=== PATIENT | female | born 1935 | race Hispanic/Latino ===

== ENCOUNTER 2018-07-14 15:29 | Observation (INO) | payer OTHER ==
[2018-07-14 16:37] LABS: Absolute Lymphocytes (CBC) 0.2 K/uL (0.7-4.9); Absolute Monocytes 0.5 K/uL (0.1-1.3); Absolute Neutrophil 8.4 K/uL (1.8-8.0); Basophils % 0.3 % (0-1.3); Hematocrit 33.7 % (36.0-45.0); Lymphocytes % 2.5 % (15.3-44.8); MCV 92.1 fL (80-100); MPV 7.8 fL (7.6-11.3); Monocytes % 5.8 % (3.3-12.3); RBC Red Blood Cell Count 3.66 M/uL (3.86-4.86)
[2018-07-14 16:52] LABS: ALT/SGPT 32 U/L (12-78); AST/SGOT 31 U/L (15-37); Albumin 3.7 g/dL (3.4-5.0); Alkaline Phosphatase 97 U/L (45-117); BUN Blood Urea Nitrogen 17 mg/dL (7-18); Bicarbonate 26 mmol/L (21-32); Bilirubin Direct 0.2 mg/dL (0-0.2); Bilirubin Total 0.6 mg/dL (0.2-1.0); Glucose Level 117 mg/dL (74-106); NT PRO-BNP 949 pg/mL (<450); Potassium 3.7 mmol/L (3.5-5.1); Protein, Total 7.2 g/dL (6.4-8.2); Sodium Level 133 mmol/L (136-145); Troponin (Emerg Dept Use Only) 0.08 ng/mL (0.0-0.045)
[2018-07-14 16:56] LABS: Protime INR 1.01
--- NOTE | 2018-07-14 17:03 | RAD REPORT ---
EXAM DESCRIPTION: CT - CTHCSPWOC - 07/14/2018 4:47 pm CLINICAL HISTORY: Trauma, head and neck injury. fall COMPARISON: Head C Spine Mpr Wo Con dated 02/26/2016 TECHNIQUE: Axial 5 mm thick images of the head were obtained. Axial 2 mm thick images of the cervical spine were obtained with sagittal and coronal reconstruction images generated and reviewed. All CT scans are performed using dose optimization technique as appropriate and may include automated exposure control or mA/KV adjustment according to patient size. FINDINGS: CT HEAD WITHOUT CONTRAST: No acute hemorrhage, hydrocephalus or extra-axial collection is identified.Advanced generalized brain atrophy is present with advanced periventricular and deep white matter chronic microvascular ischemi c changes.No areas of brain edema or midline shift. The paranasal sinuses and mastoids are clear.The calvarium is intact. CT CERVICAL SPINE WITHOUT CONTRAST: No fracture or subluxation.2 mm degenerative anterolisthesis of C3 on 4 is present. 2 mm degenerative retrolisthesis of C5 on 6.No prevertebral soft tissues swelling is identified. Carotid atheroscleros is is present. IMPRESSION: No acute intracranial or cervical spine findings. Moderate cervical degenerative changes are present.
--- NOTE | 2018-07-14 17:14 | RAD REPORT ---
EXAM DESCRIPTION: RAD - Chest Single View - 07/14/2018 5:08 pm CLINICAL HISTORY: fall, syncope Chest pain. COMPARISON: Chest Single View dated 02/27/2016; Chest Single View dated 02/26/2016; CHEST SINGLE VIEW dated 11/01/2015 FINDINGS: Portable technique limits examination quality. Mild interstitial pulmonary edema is noted. The heart is mildly prominent size. No displaced fracture s.Aortic atherosclerosis. IMPRESSION: Mild CHF suspected.
[2018-07-14 17:39] LABS: Blood Morphology Comment NOT SEEN (NOT SEEN); Platelet Estimate ADEQ; Urine White Blood Cell Casts OK
[2018-07-14] MEDS ORDERED: LISINOPRIL 10 MG TAB ONE (17:40)
--- NOTE | 2018-07-14 18:19 | ER ---
Nurse's Notes [facility] Name: Karla Rosa Age: 82 yrs Sex: Female : 1935 Arrival Date: 07/14/2018 Time: 15:40 Bed 6 Private MD: Diagnosis: Syncope and collapse;Elevated Troponin Presentation: 07/14 15:40 Presenting complaint: EMS states: "pt was found lying on floor after unwitnessed fall, aa5 pt was on floor for approximately 4 hours". Pt denies pain. 15:40 Transition of care: patient was not received from another setting of care. Onset of aa5 symptoms was July 14, 2018. Risk Assessment: Do you want to hurt yourself or someone else? Patient reports no desire to harm self or others. Initial Sepsis Screen: Does the patient meet any 2 criteria? No. Patient's initial sepsis screen is negative. Does the patient have a suspected source of infection? No. Patient's initial sepsis screen is negative. Care prior to arrival: IV initiated. 22 GA, in the right forearm. 15:40 Method Of Arrival: EMS: [facility] aa5 15:40 Mechanism of Injury: Fall from standing position. Trauma event details: Injury occurred aa5 in the [facility], Injury occurred: at home. Injury occurred: July 14, 2018. 15:40 Acuity: AUGUSTA 2 aa5 Trauma Activation: Alert Physician: ED Physician; Name: ; Notified At: ; Arrived At: Physician: General Surgeon; Name: ; Notified At: ; Arrived At: Physician: Radiology; Name: ; Notified At: ; Arrived At: Physician: Respiratory; Name: ; Notified At: ; Arrived At: Physician: Lab; Name: ; Notified At: ; Arrived At: Historical: - Allergies: 15:45 No Known Allergies; aa5 - Home Meds: 15:45 Integra oral oral for Iron Deficiency Anemia [Active]; Omeprazole Oral [Active]; aa5 Lisinopril Oral [Active]; Aspirin Oral [Active]; 19:27 Famotidine Oral [Active]; lisinopril Oral [Active]; ak1 - PMHx: 15:41 GERD; Hypertension; aa5 - PSHx: 15:41 Hysterectomy; aa5 - Immunization history:: Adult Immunizations unknown. - Social history:: Smoking status: Patient/guardian denies using tobacco. - Immunization history: Last tetanus immunization: unknown. - Ebola Screening: : No symptoms or risks identified at this time. Screenin:45 Abuse screen: Denies threats or abuse. Nutritional screening: No deficits noted. aa5 Tuberculosis screening: No symptoms or risk factors identified. Fall Risk Fall in past 12 months (25 points). IV access (20 points). Mental Status- Overestimates/Forgets Limitations (15 pts.). Total Guzman Fall Scale indicates High Risk Score (45 or more points). Fall prevention measures have been instituted. Side Rails Up X 2 Placed Close to Nursing Station. Primary Survey: 15:40 A: Airway: patent. Breathing/Chest: Chest inspection: symmetrical rise and fall of the aa5 chest. Circulation: Skin color: pink. Disability Alert. 15:55 Reassessment Airway Airway Patent Breathing/Chest Respiratory pattern Regular aa5 Circulation Color [place] Disability Alert. Secondary Survey: 15:45 HEENT: No deficits noted. Gastrointestinal: No deficits noted. : No deficits noted. aa5 Musculoskeletal: No deficits noted. Assessment: 15:42 General: Appears comfortable, Behavior is calm, cooperative, Pt states "I just remember aa5 making coffee and I think I fell but my son found me lying on the floor". . Pain: Denies pain. Neuro: Level of Consciousness is awake, alert, obeys commands, Oriented to person, place, time, situation, [place] are weak bilaterally Moves all extremities. Speech is normal, Facial symmetry appears normal, Pupils are PERRLA. EENT: No signs and/or symptoms were reported regarding the EENT system. Cardiovascular: Heart tones S1 S2 present Rhythm is regular. Respiratory: Airway is patent Respiratory effort is even, unlabored, Respiratory pattern is regular, symmetrical, Breath sounds are clear bilaterally. GI: Abdomen is flat, non-distended, Bowel sounds present X 4 quads. Abd is soft and non tender X 4 quads. : No signs and/or symptoms were reported regarding the genitourinary system. Derm: Skin is pink, warm \\T\\ dry. Musculoskeletal: Range of motion: intact in all extremities. 16:15 Reassessment: Patient is alert, oriented x 3, equal unlabored respirations, skin aa5 warm/dry/pink. Patient denies pain at this time. 17:15 Reassessment: Pt resting in bed with eyes closed, respirations even and unlabored, skin aa5 is pink/warm/dry. . 17:40 Reassessment: Patient is alert, oriented x 3, equal unlabored respirations, skin aa5 warm/dry/pink. Pt assisted with bedside commode and urine specimen collection. . 18:30 Reassessment: Patient and/or family updated on plan of care and expected duration. Pain aa5 level reassessed. Patient is alert, oriented x 3, equal unlabored respirations, skin warm/dry/pink. Patient denies pain at this time. Awaiting room assingment. 19:22 Reassessment: Patient appears in no apparent distress at this time. No changes from ak1 previously documented assessment. Patient and/or family updated on plan of care and expected duration. Pain level reassessed. 20:25 Reassessment: pt family at bedside request this nurse call when pt is assigned a room ak1 number. Vital Signs: 15:41 BP 186 / 66; Pulse 85; Resp 16 S; Temp 98.4(O); Pulse Ox 93% on R/A; Pain 0/10; aa5 15:43 Pulse Ox 98% on 2 lpm NC; aa5 16:15 BP 206 / 69; Pulse 80; Resp 16 S; Pulse Ox 99% on 2 lpm NC; aa5 17:15 BP 186 / 73; Pulse 73; Resp 16 S; Temp 98.9(O); Pulse Ox 98% on 2 lpm NC; Pain 0/10; aa5 18:06 BP 204 / 73; Pulse 85; Resp 18 S; Pulse Ox 98% on 2 lpm NC; Pain 0/10; aa5 18:30 BP 172 / 59; Pulse 76; Resp 16 S; Pulse Ox 100% on 2 lpm NC; aa5 19:37 BP 172 / 70; Pulse 80; Resp 16; Temp 98.9; Pulse Ox 100% on 2 lpm NC; Pain 0/10; ak1 Edmund Coma Score: 15:41 Eye Response: spontaneous(4). Verbal Response: oriented(5). Motor Response: obeys aa5 commands(6). Total: 15. Trauma Score (Adult): 15:41 Eye Response: spontaneous(1); Verbal Response: oriented(1); Motor Response: obeys aa5 commands(2); Systolic BP: > 89 mm Hg(4); Respiratory Rate: 10 to 29 per min(4); Edmund Score: 15; Trauma Score: 12 16:15 Eye Response: spontaneous(1); Verbal Response: oriented(1); Motor Response: obeys aa5 commands(2); Systolic BP: > 89 mm Hg(4); Respiratory Rate: 10 to 29 per min(4); Edmund Score: 15; Trauma Score: 12 17:15 Eye Response: spontaneous(1); Verbal Response: oriented(1); Motor Response: obeys aa5 commands(2); Systolic BP: > 89 mm Hg(4); Respiratory Rate: 10 to 29 per min(4); Edmund Score: 15; Trauma Score: 12 18:06 Eye Response: spontaneous(1); Verbal Response: oriented(1); Motor Response: obeys aa5 commands(2); Systolic BP: > 89 mm Hg(4); Respiratory Rate: 10 to 29 per min(4); Edmund Score: 15; Trauma Score: 12 18:30 Eye Response: spontaneous(1); Verbal Response: oriented(1); Motor Response: obeys aa5 commands(2); Systolic BP: > 89 mm Hg(4); Respiratory Rate: 10 to 29 per min(4); [place] Score: 15; Trauma Score: 12 ED Course: 15:40 Patient arrived in ED. aa5 15:40 Arm band placed on. aa5 15:40 Patient has correct armband on for positive identification. Placed in gown. Bed in low aa5 position. Call light in reach. Side rails up X2. school lunch monitor on. Pulse ox on. NIBP on. 15:44 Triage completed. aa5 15:45 Cadence Baez, RN is Primary Nurse. aa5 15:45 Oxygen administration via nasal cannula \\T\\ 2L/min. Thermoregulation: warm blanket given aa5 to patient. 15:49 Magdiel Astorga PA is PHCP. [facility] 15:49 Alfredo Barros MD is Attending Physician. [facility] 16:00 Maintain EMS IV. aa5 16:31 EKG done, by pyrotechnician. reviewed by Magdiel ELISE. 3 16:48 CT Head C Spine In Process Unspecified. EDMS 17:06 X-ray completed. Portable x-ray completed in exam room. Patient tolerated procedure ml well. 17:07 XRAY Chest (1 view) In Process Unspecified. EDMS 17:29 Shamika Bradley MD is Hospitalizing Provider. [facility] 17:55 Urine collected: clean catch specimen, clear. 3 19:10 Report given to ALF Russo. aa5 19:38 No provider procedures requiring assistance completed. Patient admitted, IV remains in ak1 place. Administered Medications: 17:46 Drug: Lisinopril 10 mg Route: PO; aa5 19:39 Follow up: Response: No adverse reaction; Blood pressure is lowered ak1 Intake: 19:22 PO: 0ml; Total: 0ml. ak1 Outcome: 17:29 Decision to Hospitalize by Provider. [facility] 20:25 Condition: stable ak1 20:25 Patient's length of stay was not longer than 2 hours. 22:02 Patient left the ED. ak1 Signatures: Dispatcher [employer] EDMS Magdiel Astorga PA PA jmm Lopez, Melissa ml Calderon, Audri, RN RN aa5 Rafaela Hollingsworth RN RN ak1 Aleida Nunez 3 Soila Carvajal 3 Corrections: (The following items were deleted from the chart) 16:20 15:41 Allergies: PENICILLINS; aa5 aa5 16:30 15:40 Acuity: AUGUSTA 3 5 5 19:38 19:37 BP 172 / 70; Pulse 80bpm; Resp 16bpm; Pulse Ox 100% RA; Temp 98.9F; Pain 0/10; ak1ak1
--- NOTE | 2018-07-14 18:19 | EDPHYS ---
Physician Documentation [facility] Name: Karla Rosa Age: 82 yrs Sex: Female : 1935 Arrival Date: 07/14/2018 Time: 15:40 Bed 6 Private MD: ED Physician Alfredo Barros HPI: 07/14 16:10 This 82 yrs old Female presents to ER via EMS with complaints of Fall Injury, jmm Possible syncope episode. 16:10 Onset: The symptoms/episode began/occurred acutely, 5 hour(s) ago. Associated injuries: jmm The patient sustained no obvious injury. This is an 82 year old female with a history of GERD, HTN that presents to the ED after a fall which occurred 5 hours prior to arrival. According to the patient's son the patient was on the floor for approx 5 hours. Patient denies pain, denies shortness of breath, denies abdominal pain. Denies weakness. Son states the patient is acting appropriately. . Historical: - Allergies: 15:45 No Known Allergies; aa5 - Home Meds: 15:45 Integra oral oral for Iron Deficiency Anemia [Active]; Omeprazole Oral [Active]; aa5 Lisinopril Oral [Active]; Aspirin Oral [Active]; 19:27 Famotidine Oral [Active]; lisinopril Oral [Active]; ak1 - PMHx: 15:41 GERD; Hypertension; aa5 - PSHx: 15:41 Hysterectomy; aa5 - Immunization history:: Adult Immunizations unknown. - Social history:: Smoking status: Patient/guardian denies using tobacco. - Immunization history: Last tetanus immunization: unknown. - Ebola Screening: : No symptoms or risks identified at this time. ROS: 16:10 Constitutional: Negative for fever, chills, and weight loss, Cardiovascular: Negative jmm for chest pain, palpitations, and edema, Respiratory: Negative for shortness of breath, cough, wheezing, and pleuritic chest pain, Abdomen/GI: Negative for abdominal pain, nausea, vomiting, diarrhea, and constipation, Back: Negative for injury and pain. 16:10 Neuro: Positive for syncope. 16:10 All other systems are negative. Exam: 16:10 Constitutional: This is a well developed, well nourished patient who is awake, alert, jmm and in no acute distress. Head/Face: atraumatic. Eyes: EOMI, no conjunctival erythema appreciated ENT: Moist Mucus Membranes 16:10 Neck: C-spine: appears grossly normal, ROM/movement: is normal. 16:10 Cardiovascular: Rate: normal, Rhythm: regular, Pulses: no pulse deficits are appreciated. 16:10 Respiratory: the patient does not display signs of respiratory distress, Respirations: normal, Breath sounds: are clear throughout. 16:10 Abdomen/GI: Inspection: abdomen appears normal, Bowel sounds: normal, Palpation: abdomen is soft and non-tender. 16:10 Back: ROM is normal. 16:10 Musculoskeletal/extremity: ROM: intact in all extremities. 16:10 Skin: Appearance: Color: normal in color. 16:10 Neuro: Orientation: is normal, Mentation: is normal, Memory: is normal, Cerebellar function: normal finger to nose testing, Motor: is normal, moves all fours. 16:10 Psych: Behavior/mood is pleasant, cooperative. Vital Signs: 15:41 BP 186 / 66; Pulse 85; Resp 16 S; Temp 98.4(O); Pulse Ox 93% on R/A; Pain 0/10; aa5 15:43 Pulse Ox 98% on 2 lpm NC; aa5 16:15 BP 206 / 69; Pulse 80; Resp 16 S; Pulse Ox 99% on 2 lpm NC; aa5 17:15 BP 186 / 73; Pulse 73; Resp 16 S; Temp 98.9(O); Pulse Ox 98% on 2 lpm NC; Pain 0/10; aa5 18:06 BP 204 / 73; Pulse 85; Resp 18 S; Pulse Ox 98% on 2 lpm NC; Pain 0/10; aa5 18:30 BP 172 / 59; Pulse 76; Resp 16 S; Pulse Ox 100% on 2 lpm NC; aa5 19:37 BP 172 / 70; Pulse 80; Resp 16; Temp 98.9; Pulse Ox 100% on 2 lpm NC; Pain 0/10; ak1 Edmund Coma Score: 15:41 Eye Response: spontaneous(4). Verbal Response: oriented(5). Motor Response: obeys aa5 commands(6). Total: 15. Trauma Score (Adult): 15:41 Eye Response: spontaneous(1); Verbal Response: oriented(1); Motor Response: obeys aa5 commands(2); Systolic BP: > 89 mm Hg(4); Respiratory Rate: 10 to 29 per min(4); Edmund Score: 15; Trauma Score: 12 16:15 Eye Response: spontaneous(1); Verbal Response: oriented(1); Motor Response: obeys aa5 commands(2); Systolic BP: > 89 mm Hg(4); Respiratory Rate: 10 to 29 per min(4); Powell Score: 15; Trauma Score: 12 17:15 Eye Response: spontaneous(1); Verbal Response: oriented(1); Motor Response: obeys aa5 commands(2); Systolic BP: > 89 mm Hg(4); Respiratory Rate: 10 to 29 per min(4); Powell Score: 15; Trauma Score: 12 18:06 Eye Response: spontaneous(1); Verbal Response: oriented(1); Motor Response: obeys aa5 commands(2); Systolic BP: > 89 mm Hg(4); Respiratory Rate: 10 to 29 per min(4); Powell Score: 15; Trauma Score: 12 18:30 Eye Response: spontaneous(1); Verbal Response: oriented(1); Motor Response: obeys aa5 commands(2); Systolic BP: > 89 mm Hg(4); Respiratory Rate: 10 to 29 per min(4); Edmund Score: 15; Trauma Score: 12 MDM: 16:10 Patient medically screened. [facility] 17:28 Data reviewed: vital signs, nurses notes, lab test result(s), EKG, radiologic studies, [facility] plain films. Counseling: I had a detailed discussion with the patient and/or guardian regarding: the historical points, exam findings, and any diagnostic results supporting the discharge/admit diagnosis, lab results, radiology results, the need for further work-up and treatment in the hospital. ED course: I discussed the patient with Dr. Bradley whom accepted admission. . 07/14 16:13 Order name: Basic Metabolic Panel; Complete Time: 17:15 [facility] 07/14 16:13 Order name: CBC with Diff; Complete Time: 17:45 [facility] 07/14 16:13 Order name: LFT's; Complete Time: 17:15 [facility] 07/14 16:13 Order name: Magnesium; Complete Time: 17:15 [facility] 07/14 16:13 Order name: NT PRO-BNP; Complete Time: 17:15 [facility] 07/14 16:13 Order name: PT-INR; Complete Time: 17:15 [facility] 07/14 16:13 Order name: CT Head C Spine; Complete Time: 17:15 [facility] 07/14 16:13 Order name: Troponin (emerg Dept Use Only); Complete Time: 17:15 [facility] 07/14 16:13 Order name: XRAY Chest (1 view); Complete Time: 17:20 [facility] 07/14 16:13 Order name: EKG; Complete Time: 16:15 [facility] 07/14 16:48 Order name: CBC Smear Scan; Complete Time: 17:45 [facility] 07/14 18:08 Order name: Urine Dipstick--Ancillary (enter results) 07/14 18:35 Order name: Urine Dipstick-Ancillary; Complete Time: 20:21 [facility] 07/14 16:13 Order name: Cardiac monitoring; Complete Time: 16:21 [facility] 07/14 16:13 Order name: EKG - Nurse/Tech; Complete Time: 16:21 [facility] 07/14 16:13 Order name: IV Saline Lock; Complete Time: 16:21 [facility] 07/14 16:13 Order name: Labs collected and sent; Complete Time: 16:21 [facility] 07/14 16:13 Order name: O2 Per Protocol; Complete Time: 16:21 [facility] 07/14 16:13 Order name: O2 Sat Monitoring; Complete Time: 16:21 [facility] 07/14 17:21 Order name: Urine Dipstick-Ancillary (obtain specimen); Complete Time: 17:46 jm Administered Medications: 17:46 Drug: Lisinopril 10 mg Route: PO; aa5 19:39 Follow up: Response: No adverse reaction; Blood pressure is lowered ak1 Disposition: 07/15 13:57 Co-signature as Attending Physician, Alfredo Barros MD I agree with the assessment and kdr plan of care. Disposition: 07/14/18 17:29 Hospitalization ordered by Shamika Bradley for Observation. Preliminary diagnosis are Syncope and collapse, Elevated Troponin. - Bed requested for Telemetry/MedSurg (observation). - Status is Observation. ak1 - Condition is Stable. - Problem is new. - Symptoms are unchanged. UTI on Admission? No Signatures: Dispatcher [employer] [facility] Alfredo Barros MD MD kdr Mickail, Joel, PA PA jmm Calderon, Audri, RN RN aa5 Rafaela Hollingsworth RN RN ak1 Praveena Pepe RN RN cg Corrections: (The following items were deleted from the chart) 07/14 16:20 15:41 Allergies: PENICILLINS; aa5 aa5 20:30 17:29 Hospitalization Ordered by Shamika Bradley MD for Observation. Preliminary cg diagnosis is Syncope and collapse; Elevated Troponin. Bed requested for Telemetry/MedSurg (observation). Status is Observation. Condition is Stable. Problem is new. Symptoms are unchanged. UTI on Admission? No. [facility] 22:02 20:30 07/14/2018 17:29 Hospitalization Ordered by Shamika Bradley MD for Observation. ak1 Preliminary diagnosis is Syncope and collapse; Elevated Troponin. Bed requested for Telemetry/MedSurg (observation). Status is Observation. Condition is Stable. Problem is new. Symptoms are unchanged. UTI on Admission? No.
[2018-07-14 18:34] LABS: Urine Blood 2+ (NEG); Urine Glucose NEGATIVE (NEG); Urine Protein 1+ (NEG)
[2018-07-14 22:47] VITALS: O2SAT 100
[2018-07-14] MEDS ORDERED: ACETAMINOPHEN 500 MG TAB PO PRN (22:50)
[2018-07-14] MEDS ORDERED: ONDANSETRON 4 MG/2 ML VIAL IV PRN (22:50)
[2018-07-14 23:08] VITALS: BMI 15.8
[2018-07-14] MEDS: NA CHLORIDE 0.9% 1,000 ML IV SCH (23:28)
[2018-07-15] MEDS: HYDRALAZINE HCL 20 MG/ML VIAL IV PRN ×2 (01:22→18:59)
--- NOTE | 2018-07-15 05:28 | P.HP ---
Certification for Inpatient Patient admitted to: Observation With expected LOS: <2 Midnights Practitioner: I am a practitioner with admitting privileges, knowledge of patient current condition, hospital course, and medical plan of care. Services: Services provided to patient in accordance with Admission requirements found in Title 42 Section 412.3 of the Code of Federal Regulations Patient History Date of Service: 07/14/18 Reason for admission: Fell at home History of Present Illness: Ms Rosa is an 82-year-old woman who lives by herself, she has history of hypertension and GERD, who was at home yesterday when suddenly fell after slipping on the floor. She states that she never lose her conscious, but the problem was that she was not able to stand up by herself. Once her son arrived her home, she was helped to stand up. She denied any pain as consequence of. CT head and cervical spine, shows no acute abnormality. The patient denied chest pain or shortness of breath. At my encounter, the patient was alert and oriented x3, and she had perfectly recalled what happened. Allergies No Known Allergies Allergy (Verified 07/14/18 23:03) Home medications list reviewed: Yes Home Medications: Lisinopril 20 mg PO BEDTIME 02/26/16 Ferrous Sulfate [Ferrous Sulfate*] 325 mg PO [id number] tab 02/28/16 Pantoprazole [Protonix Tab*] 40 mg PO DAILYAC #30 tab 02/28/16 Aspirin [Aspirin EC 81 MG] 81 mg PO DAILY 01/05/17 Cholecalciferol (Vitamin D3) [Vitamin D3] 2,000 unit PO DAILY 01/05/17 Codeine/APAP [Tylenol W/Codeine #3 tab] 1 tab PO Q4HP PRN #20 tab 01/05/17 Melatonin 1 mg PO DAILY 01/05/17 Multivitamin [Multivitamins] 1 each PO DAILY 01/05/17 Papaya [Papaya Enzyme] 2 each PO DAILY 01/05/17 Sulfamethoxazole/Trimethoprim [Bactrim Ds Tablet] 1 each PO BID #10 tablet 01/05 raNITIdine HCl [Ranitidine HCl] 150 mg PO DAILY 01/05/17 - Past Medical/Surgical History Diabetic: No -: Anemia -: Hypertension -: GERD -: Vitamin-D deficiency -: Osteoporosis -: Hysterectomy Psychosocial/ Personal History: She is a , has 2 children, she does not work at this time. 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 She currently lives by herself. Her son and [id number]-nox lives next door. - Family History Mother -: Other (see notes) Notes: bladder disease - Social History Smoking Status: Never smoker Alcohol use: No CD- Drugs: No Caffeine use: Yes Place of Residence: Home Review of Systems 10-point ROS is otherwise unremarkable Physical Examination - Vital Signs Temperature: 98.5 F Blood Pressure: 185/70 Pulse: 65 Respirations: 16 Pulse Ox (%): 97 - Physical Exam General: Alert, In no apparent distress, Oriented x3 HEENT: Atraumatic, PERRLA, Mucous membr. moist/pink, EOMI, Sclerae nonicteric Neck: Supple, 2+ carotid pulse no bruit, No LAD, Without JVD or thyroid abnormality Respiratory: Clear to auscultation bilaterally, Normal air movement Cardiovascular: Normal S1 S2, No gallops Gastrointestinal: Normal bowel sounds, No tenderness Musculoskeletal: No tenderness Integumentary: No rashes Neurological: Normal speech, Normal strength at 5/5 x4 extr, Normal tone, Normal affect Lymphatics: No axilla or inguinal lymphadenopathy - Studies Laboratory Data (last 24 hrs) 07/14/18 16:23: PT 11.9, INR 1.01 07/14/18 16:23: WBC 9.2, Hgb 11.3 L, Hct 33.7 L, Plt Count 175 07/14/18 16:23: Sodium 133 L, Potassium 3.7, BUN 17, Creatinine 0.40 L, Glucose 117 H, Magnesium 2.0, Total Bilirubin 0.6, AST 31, ALT 32, Alkaline Phosphatase 97 Assessment and Plan - Problems (Diagnosis) (1) Fall Current Visit: No Status: Acute Qualifiers: Encounter type: initial encounter (2) GERD (gastroesophageal reflux disease) Current Visit: No Status: Chronic Qualifiers: Esophagitis presence: esophagitis presence not specified (3) Hypertension Current Visit: No Status: Chronic Qualifiers: Hypertension type: essential hypertension (4) Osteoporosis Current Visit: No Status: Chronic Qualifiers: Osteoporosis type: unspecified Presence of current pathological fracture: without current pathological fracture Qualified Code(s): M81.0 - Age-related osteoporosis without current pathological fracture - Plan The patient will be admitted to the hospital after sustaining a fall at home. Lab work was remarkable for elevated troponin I, EKG shows sinus rhythm with T- wave inversion. Will continue with serial cardiac enzymes and EKG, will order echo and cardiology consult. - Advance Directives Does patient have a Living Will: No Does patient have a Durable POA for Healthcare: No - Code Status/Comfort Care Code Status Assessed: Yes Code Status: Full Code
[2018-07-15] MEDS: NA CHLORIDE 0.9% 1,000 ML IV SCH ×2 (06:16→21:13)
[2018-07-15 08:02] LABS: Absolute Lymphocytes (CBC) 0.3 K/uL (0.7-4.9); Absolute Monocytes 0.2 K/uL (0.1-1.3); Absolute Neutrophil 4.8 K/uL (1.8-8.0); Basophils % 0.4 % (0-1.3); Eosinophils % 0.5 % (0-4.4); Hematocrit 29.6 % (36.0-45.0); Lymphocytes % 5.8 % (15.3-44.8); MCH 31.1 pg (27.0-35.0); MCV 92.1 fL (80-100); MPV 8.1 fL (7.6-11.3); Monocytes % 4.4 % (3.3-12.3); RBC Red Blood Cell Count 3.21 M/uL (3.86-4.86)
[2018-07-15 08:04] LABS: ALT/SGPT 28 U/L (12-78); AST/SGOT 30 U/L (15-37); Albumin 2.9 g/dL (3.4-5.0); Alkaline Phosphatase 69 U/L (45-117); BUN Blood Urea Nitrogen 13 mg/dL (7-18); Bicarbonate 22 mmol/L (21-32); Bilirubin Total 0.6 mg/dL (0.2-1.0); Glucose Level 88 mg/dL (74-106); Magnesium 1.9 mg/dL (1.8-2.4); Phosphorus 2.4 mg/dL (2.5-4.9); Potassium 3.5 mmol/L (3.5-5.1); Sodium Level 134 mmol/L (136-145)
[2018-07-15] MEDS ORDERED: POTASSIUM CL SA 10 MEQ TAB PO ONE (10:20)
[2018-07-15] MEDS: ENOXAPARIN 40 MG/0.4 ML SQ SCH (10:39)
[2018-07-15] MEDS ORDERED: POTASS/SODIUM PHOSPHATE 1 PKT POWD.PACK PO ONE (11:00)
--- NOTE | 2018-07-15 11:35 | ECHO ---
HEIGHT: 4 ft 9 in WEIGHT: 73 lb 6.4 oz DATE OF STUDY: 07/15/[address]: Sara Mclain MD 2-DIMENSIONAL: YES M.MODE: YES DOPPLER: YES COLOR FLOW: YES TDS: NO PORTABLE: NO DEFINITY: NO BUBBLE STUDY: NO DIAGNOSIS: SYNCOPE CARDIAC HISTORY: CATHERIZATION: NO SURGERY: NO PROSTHETIC VALVE: NO PACEMAKER: NO MEASUREMENTS (cm) DIASTOLIC (NORMALS) SYSTOLIC (NORMALS) IVSd 0.9 (0.6-1.2) LA Diam 2.6 (1.9-4.0) LVEF 79% LVIDd 4.2 (3.5-5.7) LVIDs 2.2 (2.0-3.5) %FS 47% LVPWd 1.1 (0.6-1.2) Ao Diam 2.3 (2.0-3.7) 2 DIMENSIONAL ASSESSMENT: RIGHT ATRIUM: NORMAL LEFT ATRIUM: NORMAL RIGHT VENTRICLE: NORMAL LEFT VENTRICLE: NORMAL TRICUSPID VALVE: NORMAL MITRAL VALVE: NORMAL PULMONIC VALVE: NORMAL AORTIC VALVE: NORMAL PERICARDIAL EFFUSION: NONE AORTIC ROOT: NORMAL LEFT VENTRICULAR WALL MOTION: NORMAL. DOPPLER/COLOR FLOW: MILD TRICUSPID REGURGITATION. COMMENTS: NORMAL LEFT VENTRICULAR SIZE AND FUNCTION. MILD TRICUSPID REGURGITATION- NORMAL RIGHT VENTRICULAR SYSTOLIC PRESSURE. AORTIC SCLEROSIS. TECHNOLOGIST: JACKSON MUNOZ
--- NOTE | 2018-07-15 12:35 | EKG ---
Test Date: 2018-07-14 Test Time: 16:27:48 Slab Tripper: KULWANT MEASUREMENT RESULTS: Intervals: Rate: 82 MT: 160 QRSD: 82 QT: 400 QTc: 467 [place]: P: 23 MT: 160 QRS: 3 T: 34 INTERPRETIVE STATEMENTS: Normal sinus rhythm Possible Left atrial enlargement Borderline ECG Compared to ECG 01/05/2017 09:43:22 Sinus bradycardia no longer present Sinus arrhythmia no longer present Left ventricular hypertrophy no longer present T-wave abnormality no longer present Electronically Signed On 07-15-18 12:33:01 [employer]ITY [employer] by Christiano Moreno
--- NOTE | 2018-07-15 12:50 | RAD REPORT ---
EXAM DESCRIPTION: US - CP - 07/15/2018 12:37 pm CLINICAL HISTORY: syncope COMPARISON: Head C Spine Mpr Wo Con dated 07/14/2018 TECHNIQUE: Real-time sonographic evaluation of both carotid systems was performed. Doppler interroga tion was performed with waveform tracing bilaterally. FINDINGS: Normal high resistance waveforms are noted in both external carotid arteries. The common c arotid arteries and internal carotid arteries show normal low resistance waveforms. Moderate mixed plaque is present involving both proximal internal carotid arteries. Peak systolic and end diastolic velocity values and the ICA/CCA ratios are in the non-hemodynamically significant rang e. Antegrade flow seen in both vertebral arteries. IMPRESSION: Moderate mixed plaque is seen in both proximal internal carotid arteries. No evidence of a hemodynamically significant stenosis.
--- NOTE | 2018-07-15 13:30 | P.PN ---
Subjective Date of Service: 07/15/18 Chief Complaint: Fell at home Patient seen and examined at bedside with RN. Chart reviewed. Case discussed with patient at bedside. Currently patient is working with physical therapy. Doing well. Denies having any chest pain or syncopal episodes here in the hospital. Review of Systems 10-point ROS is otherwise unremarkable Physical Examination - Vital Signs Temperature: 98.1 F Blood Pressure: 169/74 Pulse: 68 Respirations: 20 Pulse Ox (%): 95 - Physical Exam General: Alert, In no apparent distress HEENT: Atraumatic, PERRLA, EOMI Neck: Supple, JVD not distended Respiratory: Clear to auscultation bilaterally, Normal air movement Cardiovascular: Regular rate/rhythm, Normal S1 S2 Gastrointestinal: Normal bowel sounds, No tenderness Musculoskeletal: No tenderness Integumentary: No rashes Neurological: Normal speech, Normal tone, Normal affect Lymphatics: No axilla or inguinal lymphadenopathy - Studies Laboratory Data (last 24 hrs) 07/14/18 16:23: PT 11.9, INR 1.01 07/14/18 16:23: WBC 9.2, Hgb 11.3 L, Hct 33.7 L, Plt Count 175 07/14/18 16:23: Sodium 133 L, Potassium 3.7, BUN 17, Creatinine 0.40 L, Glucose 117 H, Magnesium 2.0, Total Bilirubin 0.6, AST 31, ALT 32, Alkaline Phosphatase 97 Medications List Reviewed: Yes Assessment And Plan - Current Problems (Diagnosis) (1) Syncope Current Visit: Yes Status: Acute Plan: Orthostatic Syncope due to BP and Pain medication -Adjust BP and pain medication -ECHO and Carotid Pending as well Qualifiers: Syncope type: unspecified Qualified Code(s): R55 - Syncope and collapse (2) Fall Current Visit: No Status: Acute Plan: S/P Syncopal Fall -PT consulted. -Fall precautions given Qualifiers: Encounter type: initial encounter (3) GERD (gastroesophageal reflux disease) Current Visit: No Status: Chronic Qualifiers: Esophagitis presence: esophagitis presence not specified (4) Hypertension Current Visit: No Status: Chronic Qualifiers: Hypertension type: essential hypertension (5) Osteoporosis Current Visit: No Status: Chronic Qualifiers: Osteoporosis type: unspecified Presence of current pathological fracture: without current pathological fracture Qualified Code(s): M81.0 - Age-related osteoporosis without current pathological fracture Discharge Plan: Home Plan to discharge in: 48 Hours - Code Status/Comfort Care Code Status Assessed: Yes Critical Care: No
[2018-07-15 17:59] LABS: Urine Appearance CLEAR; Urine Bilirubin NEGATIVE (NEG); Urine Blood 2+ (NEG); Urine Color YELLOW; Urine Glucose NEGATIVE (NEG); Urine Protein NEGATIVE (NEG)
[2018-07-15 18:10] LABS: Urine Microscopic Reflex ORDER UMIC
[2018-07-15 18:14] LABS: Urine Bacteria NONE SEEN /HPF (<20); Urine Culture Reflex Order NOT NEEDED; Urine RBC 20-50 /HPF (NONE SEEN)
[2018-07-15] MEDS: ENSURE HIGH PROTEIN 237 ML CAN PO SCH (21:13)
[2018-07-16] MEDS: NA CHLORIDE 0.9% 1,000 ML IV SCH ×3 (04:50→08:47)
[2018-07-16 05:45] LABS: Absolute Lymphocytes (CBC) 0.5 K/uL (0.7-4.9); Absolute Monocytes 0.4 K/uL (0.1-1.3); Absolute Neutrophil 3.3 K/uL (1.8-8.0); Basophils % 0.5 % (0-1.3); Eosinophils % 2.6 % (0-4.4); MCH 31.5 pg (27.0-35.0); MCV 91.1 fL (80-100); MPV 8.3 fL (7.6-11.3); Monocytes % 9.2 % (3.3-12.3); RBC Red Blood Cell Count 3.07 M/uL (3.86-4.86)
[2018-07-16 06:07] LABS: ALT/SGPT 27 U/L (12-78); AST/SGOT 24 U/L (15-37); Albumin 2.7 g/dL (3.4-5.0); Alkaline Phosphatase 63 U/L (45-117); BUN Blood Urea Nitrogen 17 mg/dL (7-18); Bicarbonate 23 mmol/L (21-32); Bilirubin Total 0.5 mg/dL (0.2-1.0); Glucose Level 92 mg/dL (74-106); Magnesium 1.8 mg/dL (1.8-2.4); Potassium 3.4 mmol/L (3.5-5.1); Protein, Total 5.7 g/dL (6.4-8.2); Sodium Level 136 mmol/L (136-145)
[2018-07-16] MEDS ORDERED: MAGNESIUM SULFATE 1 gm IVPB 1 GM/100 ML BAG IV ONE (06:59)
[2018-07-16] MEDS ORDERED: POTASSIUM PHOS IN 0.9 % NACL 15 MMOL/250 ML BAG IV ONE (07:01)
[2018-07-16] MEDS: HYDRALAZINE HCL 20 MG/ML VIAL IV PRN (08:44)
[2018-07-16] MEDS: ENOXAPARIN 40 MG/0.4 ML SQ SCH (08:44)
[2018-07-16] MEDS: ENSURE HIGH PROTEIN 237 ML CAN PO SCH (08:46)
[2018-07-16] MEDS ORDERED: POTASSIUM CL SA 10 MEQ TAB PO ONE (09:00)
[2018-07-16 10:59] VITALS: TEMP 98.4
[2018-07-16 14:44] VITALS: BP 143/66
--- NOTE | 2018-07-16 16:05 | P.DS ---
Admission Date: 07/14/18 Discharge Date: 07/16/18 Disposition: ROUTINE DISCHARGE Discharge Condition: GOOD Reason for Admission: Fell at home Consultations: Cardiology - Problems (1) Syncope Status: Acute Qualifiers: Syncope type: unspecified Qualified Code(s): R55 - Syncope and collapse (2) Fall Status: Acute Qualifiers: Encounter type: initial encounter (3) GERD (gastroesophageal reflux disease) Onset Date: 07/15/18 Status: Chronic Qualifiers: Esophagitis presence: esophagitis presence not specified (4) Hypertension Onset Date: 07/15/18 Status: Chronic Qualifiers: Hypertension type: essential hypertension (5) Osteoporosis Onset Date: 07/15/18 Status: Chronic Qualifiers: Osteoporosis type: unspecified Presence of current pathological fracture: without current pathological fracture Qualified Code(s): M81.0 - Age-related osteoporosis without current pathological fracture Brief History of Present Illness: Ms Rosa is an 82-year-old woman who lives by herself, she has history of hypertension and GERD, who was at home yesterday when suddenly fell after slipping on the floor. She states that she never lose her conscious, but the problem was that she was not able to stand up by herself. Once her son arrived her home, she was helped to stand up. She denied any pain as consequence of. CT head and cervical spine, shows no acute abnormality. The patient denied chest pain or shortness of breath. At my encounter, the patient was alert and oriented x3, and she had perfectly recalled what happened. Hospital Course: Overall during the hospital stay patient remained stable Patient was initially admitted to the hospital for a fall after a syncopal episode. Patient had syncopal workup done here in the hospital which included echocardiogram and carotid Doppler that she. On the lab work was within normal limits. Patient's medication was then refused patient's syncopal episode was most likely related to orthostatic hypotension. Patient was asked to space out her medication taking it at home. Patient demonstrate understanding. Physical therapy was consulted here in the hospital and worked with the patient and patient ambulated around 200 feet with a rolling walker. Patient had resolution of her symptoms after IV fluids here in the hospital. Patient that time was discharged home under stable condition was asked to follow up with primary care provider about 1-2 weeks post discharge. Patient was also educated and spacing out her medication home to wait significant hypotension or fall at the house Vital Signs/Physical Exam: Temp Pulse Resp BP Pulse Ox 98.4 F 94 H 17 143/66 H 98 07/16/18 08:00 07/16/18 14:00 07/16/18 14:00 07/16/18 14:00 07/16/18 14:00 General: Alert, In no apparent distress HEENT: Atraumatic, PERRLA, EOMI Neck: Supple, JVD not distended Respiratory: Clear to auscultation bilaterally, Normal air movement Cardiovascular: Regular rate/rhythm, Normal S1 S2 Gastrointestinal: Normal bowel sounds, No tenderness Musculoskeletal: No tenderness Integumentary: No rashes Neurological: Normal speech, Normal tone, Normal affect Lymphatics: No axilla or inguinal lymphadenopathy Laboratory Data at Discharge: WBC 4.4 K/uL (4.3-10.9) D 07/16/18 04:30 Hgb 9.7 g/dL (12.0-15.0) L 07/16/18 04:30 Hct 28.0 % (36.0-45.0) L 07/16/18 04:30 Plt Count 152 K/uL (152-406) 07/16/18 04:30 PT 11.9 SECONDS (9.5-12.5) 07/14/18 16:23 INR 1.01 07/14/18 16:23 Sodium 136 mmol/L (136-145) 07/16/18 04:30 Potassium 3.4 mmol/L (3.5-5.1) L 07/16/18 04:30 BUN 17 mg/dL (7-18) 07/16/18 04:30 Creatinine 0.30 mg/dL (0.55-1.3) L 07/16/18 04:30 Glucose 92 mg/dL (74-106) 07/16/18 04:30 Phosphorus 2.0 mg/dL (2.5-4.9) L 07/16/18 04:30 Magnesium 1.8 mg/dL (1.8-2.4) 07/16/18 04:30 Total Bilirubin 0.5 mg/dL (0.2-1.0) 07/16/18 04:30 AST 24 U/L (15-37) 07/16/18 04:30 ALT 27 U/L (12-78) 07/16/18 04:30 Alkaline Phosphatase 63 U/L (45-117) 07/16/18 04:30 Troponin I 0.07 ng/mL (0.0-0.045) H 07/15/18 14:55 Home Medications: Lisinopril 20 mg PO BEDTIME 02/26/16 Ferrous Sulfate [Ferrous Sulfate*] 325 mg PO [id number] tab 02/28/16 Pantoprazole [Protonix Tab*] 40 mg PO DAILYAC #30 tab 02/28/16 Aspirin [Aspirin EC 81 MG] 81 mg PO DAILY 01/05/17 Cholecalciferol (Vitamin D3) [Vitamin D3] 2,000 unit PO DAILY 01/05/17 Melatonin 1 mg PO DAILY 01/05/17 Multivitamin [Multivitamins] 1 each PO DAILY 01/05/17 Diet: Regular Activity: Ad khushboo Followup: Christiano Moreno MD [ACTIVE - CAN ADMIT] - 1 Week
--- NOTE | 2018-07-19 11:35 | CON ---
Date of Consultation: 07/15/2018 Reason For Consultation: The patient is an 82-year-old, was admitted for syncope and elevated tropon in. History Of Present Illness: The patient is an 82-year-old, has a history of gastroesophageal reflux disease, hypertension, came in with an episode of syncope after standing up. No nausea, vomiting, di aphoresis, PND, orthopnea, pedal edema, or palpitation. Troponin was mildly elevated at 0.08. BNP w as 949. Chest x-ray showed mild CHF. She was hypertensive at 172/59. Allergies: NONE. Review of Systems: Negative. Social History: Negative. Family History: Negative. Medications: At home include Integra, aspirin, Prilosec, and lisinopril. They were prescribed by Dr Odilia Boyle in [place]. Physical Examination: Vital Signs: Blood pressure is 172/59, sinus rhythm. HEENT: Negative. Neck: Supple with no bruit. Chest: Clear. On the right chest, some rales at the left base. Cardiac: Revealed a regular rhythm and rate with S4 gallops. No murmurs or rubs. Abdomen: Benign. Extremities: Revealed no clubbing, cyanosis, or edema. Diagnostic Data: As stated earlier. EKG was nonspecific. Impression And Plan: 1.Syncope most likely secondary to orthostatic hypotension. 2.History of hypertension, borderline control. 3.Gastroesophageal reflux disease. 4.Mild congestive heart failure by chest x-ray. 5.Elevated troponin, BNP. Prior to changing any medication, I think we need to do an echocardiogram that is pending. Mild diuresis is indicated. The patient is not really a candidate for invasive ca rdiac workup at this point. We will see what the echocardiogram shows first. MICHELLE/STEPHANE Voice ID: [id number] Report ID: [id number]
== END 2018-07-16 15:58 | disposition home health service (06) ==
LOC: ER 15:29 → ERHOLD 17:31 → 2ND 20:57
PROVIDERS: ADMIT Family Medicine; ATTEND Internal Medicine
DX: I95.1 Orthostatic hypotension (principal); K21.9 Gastro-esophageal reflux disease without esophagitis; M81.0 Age-related osteoporosis without current pathological fracture; I11.0 Hypertensive heart disease with heart failure; I50.9 Heart failure, unspecified
CPT/HCPCS: 36415 ×2; 70450; 71045; 72125; 80048; 80053 ×2; 80076; 81003; 82550; 83735 ×3; 83880; 84100 ×2; 84484 ×4; 85025 ×3; 85610; 93005; 93306; 93880; 97116 ×2; 97163; 97530; 99285; G0378 ×2; J0360 ×3; J1650 ×2; J3475; J7030 ×5; 81015

== ENCOUNTER 2019-09-10 09:55 | Inpatient (IN) | payer OTHER ==
[2019-09-10] MEDS ORDERED: NA CHLORIDE 0.9% 500 ML ONE (10:30)
[2019-09-10 10:47] LABS: Absolute Lymphocytes (CBC) 0.2 K/uL (0.7-4.9); Basophils % 0.1 % (0-1.3); Hematocrit 38.7 % (36.0-45.0); Lymphocytes % 2.4 % (15.3-44.8); MPV 8.4 fL (7.6-11.3); Protime INR 0.91; RBC Red Blood Cell Count 4.06 M/uL (3.86-4.86)
[2019-09-10 11:11] LABS: Potassium 4.3 mmol/L (3.5-5.1); Troponin (Emerg Dept Use Only) 4.32 ng/mL (0.0-0.045)
--- NOTE | 2019-09-10 11:15 | RAD REPORT ---
EXAM DESCRIPTION: CT - Head C Spine Cap Wo Con - 09/10/2019 10:47 am CLINICAL HISTORY: Fall, head, neck, chest and abdomen pain COMPARISON: None. TECHNIQUE: Axial [address] head images were obtained. Axial [address] cervical spine images were obtain ed with sagittal and coronal reconstruction images reviewed. Axial 5 mm images of the chest, abdomen and pelvis were obtained. All CT scans are performed using dose optimization technique as appropriate and may include automated exposure control or mA/KV adjustment according to patient size. FINDINGS: No intracranial hemorrhage, mass or edema. No midline shift or abnormal fluid collection. Mastoid air cells and paranasal sinuses are clear. No skull fracture. Arterial tree calcifications a re present. There is moderate severity atrophy and moderate severity chronic ischemic change. Ventric les are in proportion. 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 Cervical bodies are normal in height. Chronic mild anterior subluxation C3 on C4. There is slight ret rolisthesis of C5 on C6 also believed to be chronic. Disc space narrowing is present posteriorly at C 3-4 and across the C5-6 disc level. Facet joint degenerative changes are present. There is accentuate d lordosis at the C3 level. Central spinal stenosis is not suspected. No fracture or acute bone findi ng.No disk space narrowing.No prevertebral soft tissue thickening or paraspinal mass.Central canal de tail is inherently limited on CT imaging. CT chest shows no pneumothorax, pulmonary contusion or pleural fluid collection. Left lower lobe opac ification is believed to be chronic atelectasis. The patient has a very large hiatal hernia with all of the stomach intrathoracic. No mediastinal hematoma and the aorta and pulmonary arteries are unrema rkable. No chest will mass or abnormal axillary finding. No displaced rib fractures. CT abdomen and pelvis show no injury to solid abdominal viscera. Gallbladder is distended. No biliary tree dilatation. No wall thickening or edema suspected. Gallstones can be occult on CT imaging. No a cute bowel injury suspected. Moderately large stool distends the rectum. Moderate stool volume elsewh ere in the colon. No free air, free fluid or abnormal stranding. No hernia, mass or bulky lymphadenop athy. Dilated urinary bladder without wall thickening. Advanced degenerative changes are present throughout the thoracic and lumbar spine. Compression fract ures involve all of the lumbar spine except for L5. T1 shows partial wedge compression. T2 is normal in height. The remaining thoracic vertebrae all show some component of compression fracture. The L1 fracture is potentially new. Pathologic fracture not suspected. IMPRESSION: No hemorrhage, edema or acute intracranial finding. Patient has moderate severity atroph y and chronic ischemic change. Prominent cervical spine degenerative changes are present without acute finding seen. No traumatic injury to the chest identifiable. No acute traumatic injury to the soft tissues of the abdomen and pelvis. Patient has a large hiatal h ernia with all of the stomach intrathoracic. Compression fracture changes are present throughout the thoracic and lumbar spine sparing only T2 and L5. The L1 compression fracture is potentially new. L1 changes do not encroach into the central brock l.
[2019-09-10 11:25] LABS: Blood Morphology Comment NOT SEEN (NOT SEEN); Platelet Estimate ADEQ
--- NOTE | 2019-09-10 12:20 | ER ---
Nurse's Notes [facility] Name: Karla Rosa Age: 83 yrs Sex: Female : 1935 Arrival Date: 09/10/2019 Time: 09:59 Bed 3 Private MD: Diagnosis: Fall;Dehydration;Elevated troponin;Wedge compression fracture of first lumbar vertebra Presentation: 09/10 09:52 Presenting complaint: EMS states: pt was found by the son at her house on the ground sv and stated she had fallen, unknown amt of time she had been down. c/o right shoulder pain and bruise on the right de jesus, dried blood noted in the mouth. BP 153/80 HR-82 99%. Care prior to arrival: Glucose check: 172. Mechanism of Injury: Fall unknown. Trauma event details: Injury occurred in the [facility], Injury occurred: at home. 09:52 Acuity: [place] 2 sv 09:52 Method Of Arrival: EMS: [facility] sv 09:52 Transition of care: patient was not received from another setting of care. Onset of sv symptoms is unknown. Risk Assessment: Do you want to hurt yourself or someone else? Patient reports no desire to harm self or others. Initial Sepsis Screen: Does the patient meet any 2 criteria? No. Patient's initial sepsis screen is negative. Does the patient have a suspected source of infection? No. Patient's initial sepsis screen is negative. Trauma Activation: Not Applicable Physician: ED Physician; Name: ; Notified At: ; Arrived At: Physician: General Surgeon; Name: ; Notified At: ; Arrived At: Physician: Radiology; Name: ; Notified At: ; Arrived At: Physician: Respiratory; Name: ; Notified At: ; Arrived At: Physician: Lab; Name: ; Notified At: ; Arrived At: Historical: - Allergies: 12:02 No Known Allergies; sv - Home Meds: 12:36 Aspirin Oral [Active]; Famotidine Oral [Active]; Integra Oral for IRON DEFICIENCY tw2 ANEMIA [Active]; lisinopril Oral [Active]; lisinopril Oral [Active]; Omeprazole Oral [Active]; - PMHx: 10:32 GERD; Hypertension; Osteoporosis; sv - PSHx: 10:32 Hysterectomy; sv - Immunization history:: Adult Immunizations unknown. - Social history:: Smoking status: unknown. - Immunization history: Last tetanus immunization: unknown. - Family history:: not pertinent. - Ebola Screening: : No symptoms or risks identified at this time. - Hospitalizations: : No recent hospitalization is reported. Screenin:00 Abuse screen: Denies threats or abuse. Denies injuries from another. Tuberculosis sv screening: No symptoms or risk factors identified. 10:00 Nutritional screening: No deficits noted. Fall Risk No fall in past 12 months (0 pts). sv No secondary diagnosis (0 pts). IV access (20 points). Ambulatory Aid- None/Bed Rest/Nurse Assist (0 pts). Gait- Normal/Bed Rest/Wheelchair (0 pts) Mental Status- Oriented to own ability (0 pts). Total Guzman Fall Scale indicates No Risk (0-24 pts). Primary Survey: 09:52 NO uncontrolled hemorrhage observed. A: The patient is alert. Airway: patent, dried sv blood noted in the mouth No supplemental oxygen in use on arrival. Oral cavity: blood present, Trachea midline. Breathing/Chest: Respiratory pattern: regular, Respiratory effort: spontaneous, unlabored, Chest inspection: symmetrical rise and fall of the chest. Circulation: Cardiac rhythm: sinus tachycardia Pulses: palpable right radial artery and left radial artery. Skin color: pale, Skin temperature: dry, cool. Disability Alert. Exposure/Environment: All clothing and personal items were removed. Forensic evidence collection is not deemed to be indicated at this time. Items placed in patient belonging bag. There is no evidence of uncontrolled external bleeding. Obvious injury(ies) are noted at this time: bruise noted to right anterior de jesus A warming method has been applied: A warm blanket has been provided to the patient. 12:04 Reassessment Airway Airway Patent Breathing/Chest Respiratory pattern Regular tw2 Respiratory effort Spontaneous Unlabored Breath sounds Clear Chest inspection Symmetrical Circulation Heart tones Present Disability Alert. Secondary Survey: 09:52 HEENT: Throat: is clear dried blood noted on the roof of the mouth and back of the sv throat.. Gastrointestinal: Abdomen is flat, non-distended, Palpation No deficit noted Patient is incontinent of stool. black stool noted. : Urine is incontinent, pt's clothes were soaked in urine. Musculoskeletal: Range of motion: limited in left knee and right knee. Assessment: 09:52 General: Appears in no apparent distress. uncomfortable, malnourished, Behavior is sv calm, cooperative. Pain: Complains of pain in "everywhere" Pain began unknown Is intermittent, Aggravated by increased activity. Neuro: Level of Consciousness is awake, alert, obeys commands. Respiratory: Respiratory effort is even, unlabored. Injury Description: Bruise sustained to right de jesus is purple, was sustained unknown. 11:02 Reassessment: pt still in imaging at this time. tw2 11:39 Reassessment: pt in imagine still at this time. tw2 12:02 Reassessment: Patient appears in no apparent distress at this time. Patient and/or tw2 family updated on plan of care and expected duration. Pain level reassessed. pt back from imaging at this time. 12:45 Reassessment: Patient given PO aspirin per orders, while drinking the water patient aj1 begins coughing. Patient is also having difficulty using straw. Patient's dentures appear too large. Notified Dr. Olson of patient's difficulty swallowing. 13:36 Reassessment: Patient appears in no apparent distress at this time. Patient and/or tw2 family updated on plan of care and expected duration. Pain level reassessed. 13:39 Reassessment:. aj1 13:49 Reassessment: son Mikey - #[phone] -. tw2 14:35 Reassessment: Patient appears in no apparent distress at this time. No changes from aj1 previously documented assessment. Patient and/or family updated on plan of care and expected duration. Pain level reassessed. Patient is alert, oriented x 3, equal unlabored respirations, skin warm/dry/pink. 15:04 Reassessment: Notified Dr. Olson of repeat troponin level 3.36. aj1 15:06 Reassessment: Patient placed in ER HOLD status, please see [facility] for further aj1 documentation. Vital Signs: 10:14 BP 160 / 90; Pulse 98; Resp 20; Temp 97.5(A); Pulse Ox 96% on R/A; sv 12:02 BP 117 / 101; Pulse 94; Resp 19; Pulse Ox 95% on R/A; tw2 12:35 Weight 41.73 kg (R); tw2 13:36 BP 116 / 100; Pulse 79; Resp 17; Pulse Ox 98% on R/A; tw2 14:35 BP 138 / 87; Pulse 93; Resp 18; Pulse Ox 97% on R/A; aj1 18:29 Weight 30.93 kg (M); aj1 [place] Coma Score: 10:14 Eye Response: spontaneous(4). Verbal Response: oriented(5). Motor Response: obeys sv commands(6). Total: 15. Trauma Score (Adult): 10:14 Eye Response: spontaneous(1); Verbal Response: oriented(1); Motor Response: obeys sv commands(2); Systolic BP: > 89 mm Hg(4); Respiratory Rate: 10 to 29 per min(4); [place] Score: 15; Trauma Score: 12 ED Course: 09:59 Patient arrived in ED. ss 09:59 Olayinka Wallace MD is Attending Physician. rn 10:00 Patient has correct armband on for positive identification. Placed in gown. Bed in low sv position. Call light in reach. Side rails up X2. youth nutritional monitor on. Pulse ox on. NIBP on. 10:00 Bath given. Cleaned of incontinence. Linen changed. sv 10:00 Arm band placed on. sv 10:00 Oral care given. sv 10:00 Patient maintains SpO2 saturation greater than 95% on room air. sv 10:00 Thermoregulation: warm blanket given to patient. sv 10:20 Inserted saline lock: 22 gauge in left forearm, using aseptic technique. ,using aseptic sv technique. diffusics Blood collected. Flushed left forearm with 5 ml normal saline. 10:28 Ruthann Franco RN is Primary Nurse. sv 10:30 EKG done, by ED staff, reviewed by Olayinka Wallace MD. sv 10:31 Triage completed. sv 10:[address] via stretcher. sv 10:47 CT completed. Patient tolerated procedure well. Patient moved to radiology. mw3 10:47 CT Traumagram (Head C Spine CAP wo con) In Process Unspecified. EDMS 10:57 Report given to Annabella MILNER. sv 11:51 XRAY Humerus LEFT In Process Unspecified. EDMS 11:51 XRAY Humerus RIGHT In Process Unspecified. EDMS 11:51 XRAY Femur LEFT In Process Unspecified. EDMS 11:51 XRAY Femur RIGHT In Process Unspecified. EDMS 11:51 XRAY Tib Fib RIGHT In Process Unspecified. EDMS 12:01 Shavon Cassidy RN is Primary Nurse. tw2 12:19 Alexandro Olson MD is Hospitalizing Provider. rn 14:54 Urine collected: straight cath specimen, clear, Amount Returned: 500mL. kj1 15:06 No provider procedures requiring assistance completed. Patient admitted, IV remains in aj1 place. 16:05 Primary Nurse role handed off by Shavon Cassidy RN aj1 16:05 Annabella Rod, RN is Primary Nurse. aj1 Administered Medications: 12:04 Drug: NS 0.9% 500 ml Route: IV; Rate: bolus; Site: left forearm; tw2 16:59 Follow up: IV Status: Completed infusion; IV Intake: 500ml aj1 12:40 Drug: Aspirin Chewable Tablet 81 mg Route: PO; aj1 16:59 Follow up: Response: No adverse reaction aj1 Intake: 10:14 PO: 0ml; Total: 0ml. sv 16:59 IV: 500ml; Total: 500ml. aj1 10:14 Pt was incontinent of urine and bowel upon arrival from EMS. sv Output: 10:14 Other: 1 (Pads) ; Total: 0ml. sv 10:14 Pt was incontinent of urine and bowel upon arrival from EMS. sv Outcome: 12:20 Decision to Hospitalize by Provider. rn 12:36 Patient's length of stay in the Emergency Department was greater than 2 hours. tw2 admissionPatient's length of stay extended due to 16:58 Admitted to ICU Other Patient placed in ER HOLD aj1 16:58 Condition: stable 16:58 Discharge instructions given to patient, family, Instructed on the need for admit, Demonstrated understanding of instructions. 20:22 Admitted to ICU accompanied by nurse, accompanied by tech, via stretcher, room 3, on lp1 monitor, with chart, Report called to [facility] 20:36 Patient left the ED. lp1 Signatures: Dispatcher [employer] EDMS Annabella Rod, RN RN aj1 Ruthann Franco RN RN sv Olayinka Wallace MD MD rn Smirch, Shelby, RN RN ss Pena, Laura, RN RN lp1 Shavon Cassidy RN RN tw2 Lucy Pineda 3 Sofy Harrington kj1 Corrections: (The following items were deleted from the chart) 11:15 10:32 Allergies: No Known Allergies; sv aj1
--- NOTE | 2019-09-10 12:21 | EDPHYS ---
Physician Documentation [facility] Name: Karla Rosa Age: 83 yrs Sex: Female : 1935 Arrival Date: 09/10/2019 Time: 09:59 Bed 3 Private MD: ED Physician Olayinka Wallace HPI: 09/10 10:06 This 83 yrs old Female presents to ER via Unassigned with complaints of Fall rn Injury. 10:06 Onset: The symptoms/episode began/occurred today. Severity of symptoms: At their worst rn the symptoms were moderate, in the emergency department the symptoms are unchanged. The patient has experienced similar episodes in the past. Per EMS report, family called 911 for fall, AMS, generalized weakness. They believe patient fell about an hour prior to being discovered and couldn't get up, patient complains of pain all over, and does not recall events of fall. has fallen multiple times in past. . Historical: - Allergies: 12:02 No Known Allergies; sv - Home Meds: 12:36 Aspirin Oral [Active]; Famotidine Oral [Active]; Integra Oral for IRON DEFICIENCY tw2 ANEMIA [Active]; lisinopril Oral [Active]; lisinopril Oral [Active]; Omeprazole Oral [Active]; - PMHx: 10:32 GERD; Hypertension; Osteoporosis; sv - PSHx: 10:32 Hysterectomy; sv - Immunization history:: Adult Immunizations unknown. - Social history:: Smoking status: unknown. - Immunization history: Last tetanus immunization: unknown. - Family history:: not pertinent. - Ebola Screening: : No symptoms or risks identified at this time. - Hospitalizations: : No recent hospitalization is reported. ROS: 10:06 Constitutional: Negative for fever, chills Eyes: Negative for injury, pain, redness, rn and discharge, Neck: Negative for injury, pain, and swelling, Cardiovascular: Negative for chest pain, palpitations, and edema, Respiratory: Negative for shortness of breath, cough, wheezing, and pleuritic chest pain, Abdomen/GI: Negative for abdominal pain, nausea, vomiting, diarrhea, and constipation, Back: Negative for injury and pain, : Negative for injury, bleeding, discharge, and swelling, MS/Extremity: + pain in all 4 extremities Skin: Negative for injury, rash, and discoloration, Neuro: Negative for numbness, tingling, and seizure. Exam: 10:06 Constitutional: Thin, cachectic female Head/Face: Normocephalic Eyes: Periorbital rn areas with no swelling, redness, or edema. Right eye closed and matted. ENT: dry MM with oral secretions stuck on roof of mouth, + dry blood in mouth with difficulty finding original source, liekly tongue. Neck: + painful ROM neck without focal pain Chest/axilla: Normal chest wall appearance and motion. Cardiovascular: Regular rate and rhythm. No pulse deficits. Respiratory: No increased work of breathing, no retractions Abdomen/GI: soft, mild diffuse tenderness, no rebound or masses Back: + lower back tenderness without focal pain or ecchymosis Female : Normal external genitalia. MS/ Extremity: Pulses equal, no cyanosis. Painful ROM in all 4 extremities without focal deformity, RUE held passive flexion, cries with movement of both hips. Neuro: Awake and alert, GCS 15, oriented to person, and situation. Motor strength 4/5 in all extremities. Sensory grossly intact. Vital Signs: 10:14 BP 160 / 90; Pulse 98; Resp 20; Temp 97.5(A); Pulse Ox 96% on R/A; sv 12:02 BP 117 / 101; Pulse 94; Resp 19; Pulse Ox 95% on R/A; tw2 12:35 Weight 41.73 kg (R); tw2 13:36 BP 116 / 100; Pulse 79; Resp 17; Pulse Ox 98% on R/A; tw2 14:35 BP 138 / 87; Pulse 93; Resp 18; Pulse Ox 97% on R/A; aj1 18:29 Weight 30.93 kg (M); aj1 [place] Coma Score: 10:14 Eye Response: spontaneous(4). Verbal Response: oriented(5). Motor Response: obeys sv commands(6). Total: 15. Trauma Score (Adult): 10:14 Eye Response: spontaneous(1); Verbal Response: oriented(1); Motor Response: obeys sv commands(2); Systolic BP: > 89 mm Hg(4); Respiratory Rate: 10 to 29 per min(4); [place] Score: 15; Trauma Score: 12 MDM: 09:59 Patient medically screened. rn 12:15 Differential diagnosis: contusion, rhabdomyolysis, NSTEMI, CHF, spinal fracture. Data rn reviewed: vital signs, nurses notes, lab test result(s), EKG, radiologic studies, CT scan, plain films, and as a result, I will admit patient. Counseling: I had a detailed discussion with the patient and/or guardian regarding: the historical points, exam findings, and any diagnostic results supporting the discharge/admit diagnosis, lab results, radiology results, the need for further work-up and treatment in the hospital. Response to treatment: the patient's symptoms have mildly improved after treatment, and as a result, I will admit patient. Admission orders: after a detailed discussion of the patient's condition and case, the admit orders are written by me. ED course: Consulted Dr. Garcia regarding patient's status and admission, given elevated troponin, will see patient. Admitted to Dr. Olson \T\ 12:15. Non operative questionable L1 fracture. ECG with a lot of tremor artifact, but twave inversions lateral leads without ST elevation.. 16:52 ED course: Tongue scrubbed, no bleeding laceration identified. Dry blood on tip of rn tongue, difficult to remove, and patient not entirely cooperative.. 09/10 10:01 Order name: CBC with Diff; Complete Time: 12:00 rn 09/10 10:01 Order name: Basic Metabolic Panel; Complete Time: 11:15 rn 09/10 10:01 Order name: Protime (+inr); Complete Time: 11:15 rn 09/10 10:01 Order name: Ptt, Activated; Complete Time: 11:15 rn 09/10 10:01 Order name: Urine Microscopic Only rn 09/10 10:01 Order name: CK; Complete Time: 11:15 rn 09/10 10:01 Order name: Troponin (emerg Dept Use Only); Complete Time: 11:15 rn 09/10 10:01 Order name: N-Terminal Pro-brain Natriuretic Peptide; Complete Time: 11:15 rn 09/10 10:56 Order name: Occult Blood--Ancillary sv 09/10 11:25 Order name: Manual Differential; Complete Time: 12:00 EDMS 09/10 14:23 Order name: Troponin I aj1 09/10 14:59 Order name: Urine Dipstick--Ancillary (enter results) ms 09/10 15:01 Order name: Troponin I EDVT 09/10 15:16 Order name: Urine Dipstick-Ancillary [facility] 09/10 10:01 Order name: IV Start; Complete Time: 10:40 rn 09/10 10:01 Order name: Urine Dipstick-Ancillary (obtain specimen); Complete Time: 15:47 rn 09/10 10:01 Order name: EKG; Complete Time: 10:02 rn 09/10 10:01 Order name: EKG - Nurse/Tech; Complete Time: 10:40 rn 09/10 10:03 Order name: XRAY Humerus LEFT; Complete Time: 12:49 rn 09/10 10:03 Order name: XRAY Humerus RIGHT; Complete Time: 12:49 rn 09/10 10:03 Order name: XRAY Femur LEFT; Complete Time: 12:49 rn 09/10 10:03 Order name: XRAY Femur RIGHT; Complete Time: 12:49 rn 09/10 10:03 Order name: CT Traumagram (Head C Spine CAP wo con); Complete Time: 11:21 rn 09/10 10:31 Order name: XRAY Tib Fib RIGHT; Complete Time: 12:49 rn 09/10 11:16 Order name: EKG; Complete Time: 11:17 rn 09/10 11:16 Order name: EKG - Nurse/Tech; Complete Time: 12:38 rn Administered Medications: 12:04 Drug: NS 0.9% 500 ml Route: IV; Rate: bolus; Site: left forearm; tw2 16:59 Follow up: IV Status: Completed infusion; IV Intake: 500ml aj1 12:40 Drug: Aspirin Chewable Tablet 81 mg Route: PO; aj1 16:59 Follow up: Response: No adverse reaction aj1 Disposition: 09/10/19 12:20 Hospitalization ordered by Alexandro Olson for Inpatient Admission. Preliminary diagnosis are Fall, Dehydration, Elevated troponin, Wedge compression fracture of first lumbar vertebra. - Bed requested for Intensive Care Unit. - Status is Inpatient Admission. lp1 - Condition is Stable. - Problem is new. - Symptoms have improved. UTI on Admission? No Signatures: Dispatcher [employer] [facility] Annabella Rod RN RN aj1 Ruthann Franco RN Olayinka Lomas MD MD rn Smirch, Shelby, RN RN Aparna Trujillo RN RN lp1 Praveena Pepe RN RN Shavon Cassidy RN RN tw2 Corrections: (The following items were deleted from the chart) 11:15 10:32 Allergies: No Known Allergies; sv aj1 14:02 12:20 Hospitalization Ordered by Alexandro Olson MD for Inpatient Admission. Preliminary ss diagnosis is Fall; Dehydration; Elevated troponin; Wedge compression fracture of first lumbar vertebra. Bed requested for Telemetry/MedSurg (Inpatient). Status is Inpatient Admission. Condition is Stable. Problem is new. Symptoms have improved. UTI on Admission? No. rn 19:26 14:02 09/10/2019 12:20 Hospitalization Ordered by Alexandro Olson MD for Inpatient cg Admission. Preliminary diagnosis is Fall; Dehydration; Elevated troponin; Wedge compression fracture of first lumbar vertebra. Bed requested for [facility] ER HOLD. Status is Inpatient Admission. Condition is Stable. Problem is new. Symptoms have improved. UTI on Admission? No. ss 20:36 19:26 09/10/2019 12:20 Hospitalization Ordered by Alexandro Olson MD for Inpatient lp1 Admission. Preliminary diagnosis is Fall; Dehydration; Elevated troponin; Wedge compression fracture of first lumbar vertebra. Bed requested for Intensive Care Unit. Status is Inpatient Admission. Condition is Stable. Problem is new. Symptoms have improved. UTI on Admission? No. cg
[2019-09-10] MEDS ORDERED: ASPIRIN 81 MG CHEWABLE TABLET ONE (12:22)
--- NOTE | 2019-09-10 12:46 | RAD REPORT ---
EXAM DESCRIPTION: RAD - Humerus Right - 09/10/2019 11:51 am CLINICAL HISTORY: Fall, right arm pain COMPARISON: None. FINDINGS: No fracture is identified. There is no dislocation or periosteal reaction noted. No foreig n body or other soft tissue abnormality. IMPRESSION: Negative right humerus examination.
--- NOTE | 2019-09-10 12:46 | RAD REPORT ---
EXAM DESCRIPTION: RAD - Humerus Left - 09/10/2019 11:58 am CLINICAL HISTORY: Fall, left arm pain COMPARISON: None. FINDINGS: No fracture is identified. There is no dislocation or periosteal reaction noted. No forei gn body or other soft tissue abnormality. IMPRESSION: Negative left humerus examination.
--- NOTE | 2019-09-10 12:46 | RAD REPORT ---
EXAM DESCRIPTION: RAD - Tib Fib Right - 09/10/2019 11:51 am CLINICAL HISTORY: Fall, leg pain COMPARISON: None. FINDINGS: AP and cross-table lateral views obtained in show no fracture. Bones are diffusely osteope nikhil. Prominent meniscus degenerative change at the knee. There is no dislocation or periosteal reacti on noted. No acute or suspicious bony finding. No foreign body or other soft tissue abnormality. IMPRESSION: Osteopenia with no fracture or acute bone finding.
--- NOTE | 2019-09-10 12:47 | RAD REPORT ---
EXAM DESCRIPTION: RAD - Femur Left - 09/10/2019 11:57 am CLINICAL HISTORY: Fall, left leg pain COMPARISON: None. FINDINGS: No fracture is identified. There is no dislocation or periosteal reaction noted. No acute or suspicious bony finding. Knee and hip joint degenerative changes are present. No suspicious soft tissue finding. Bones are osteopenic. IMPRESSION: Negative left femur examination for fracture or acute finding.
--- NOTE | 2019-09-10 12:48 | RAD REPORT ---
EXAM DESCRIPTION: RAD - Femur Right - 09/10/2019 11:53 am CLINICAL HISTORY: Fall, right femur pain COMPARISON: None. FINDINGS: No fracture, dislocation or periosteal reaction noted. No acute or suspicious bony finding . No air or foreign body in the soft tissues. Bones are osteopenic. Hip and knee joint degenerative c hanges are present. IMPRESSION: Negative right femur examination.
[2019-09-10 15:07] LABS: Urine Bacteria <20 /HPF (<20); Urine Culture Reflex Order NOT NEEDED; Urine RBC <5 /HPF (NONE SEEN)
[2019-09-10 15:08] LABS: Urine Amorphous Sediment TRACE /HPF (NONE SEEN)
[2019-09-10 15:15] LABS: Urine Blood 2+ (NEG); Urine Glucose TRACE (NEG); Urine Protein 2+ (NEG); Urine pH 8.5 (5.0-7.0)
[2019-09-10] MEDS ORDERED: MORPHINE 4 MG/ML SYR IV PRN (16:53)
[2019-09-10] MEDS ORDERED: NITROGLYCERIN 0.4 MG/TAB SL PRN (16:53)
[2019-09-10] MEDS ORDERED: ACETAMINOPHEN 500 MG TAB PO PRN (16:53)
[2019-09-10 20:42] LABS: Troponin I 4.55 ng/mL (0.0-0.045)
[2019-09-10] MEDS ORDERED: ATORVASTATIN 80 MG TAB PO SCH (21:00)
[2019-09-10] MEDS: METOPROLOL TAR 50 MG TAB PO SCH (21:00)
[2019-09-10] MEDS: ENOXAPARIN 30 MG/0.3 ML SQ SCH (21:21)
[2019-09-10] MEDS: NA CHLORIDE 0.9% 1,000 ML IV SCH (21:21)
--- NOTE | 2019-09-10 23:53 | HP ---
Date of Admission: 09/10/2019 Primary Care Physician: Salo Boyle MD Chief Complaint: Found down, pain. Code Status: Full. History Of Present Illness: Patient is an 83-year-old female with past medical history of severe kyp hosis, osteoarthritis with previous fractures along with anemia and hypertension, GERD, severe osteop orosis, comes in with being found down. She was likely down for majority of the night. She was unab le to call for help her get up. Son found her in the morning. Patient does have some mild cognitive impairment, unable to explain what happened. Patient has been having difficulty ambulating and uses a walker and likely had a fall. Patient's symptoms are constant, moderate, progressively worsening, and complained of some pain in her back and on her right leg. Patient's workup revealed troponin of 4.32, CK level was 1400. Kidney function, however, was normal. Sodium was low at 131, which is low er than her baseline. Patient was brought into the ER by her son. Her traumagram was negative. The re was no acute fractures. There was possible L1 fracture, which is potentially new. However, the L 1 changes do not encroach into the spinal canal. Patient did not have any chest pain. Her EKG did n ot show any acute ST elevation. Patient was referred for admission. Dr. Garcia, Cardiology was cons ulted by the ER. Past Medical History: Hypertension, however, son states that she has recently been taken off her med ications due to low blood pressure, anemia, gastroesophageal reflux disease, vitamin D deficiency, os teoporosis. Past Surgical History: Hysterectomy. Allergies: NO KNOWN DRUG ALLERGIES. Medications: List reviewed. Social History: No smoking, alcohol, or illicit drug use. Patient lives at home. Uses a walker for ambulation. Needs assistance with her activities of daily living. Family History: Mother had bladder disease. Review of Systems: Limited due to patient's medical condition; however, 10-point system reviewed, negative except as per HPI. Physical Examination: Vital Signs: Blood pressure 160/90, pulse 98, respirations 20, temperature 97.5, O2 96% on room air. General: Awake, alert, oriented x2. Elderly female, ill-appearing, frail, cachectic. HEENT: Normocephalic, atraumatic. PERRLA. EOMI. Dry mucous membranes. Poor dentition. Conjuncti vae anicteric. Neck: Supple. No JVD. Trachea midline. CV: S1, S2. Regular rate and rhythm. Peripheral pulses weak. Respiratory: Somewhat diminished breath sounds, not taking deep breaths. Poor inspiratory effort. No wheezing or stridor. Gastrointestinal: Abdomen is soft, nontender, nondistended. Positive bowel sounds. No guarding or rigidity. Extremities: No clubbing, cyanosis, or edema. No calf tenderness. Neurologic: Cranial nerves 2 through 12 intact grossly. No focal neurological deficit. Speech is n ormal. Musculoskeletal: Patient has tenderness to palpation of the bilateral lower extremities, especially on the right lower extremity after the fall. Patient has severe kyphosis. Skin: Patient has a large abrasion on the right anterior lower extremity. Laboratory Data: Sodium 131, potassium 4.3, chloride 95, CO2 of 27, BUN 21, creatinine 0.64, glucose 149, calcium 9.2. CK level is 1408, troponin 4.32. BNP 8285. UA is pending. INR 0.91. WBC 10.1, H and H 7.9 and 38.7, platelets 152, neutrophils 92%, 1% bands. Hemoccult blood is negative. Imaging Studies: Traumagram shows no hemorrhage, edema or acute intracranial finding. Patient has m oderate severity atrophy and chronic ischemic change. Prominent cervical spine degenerative changes are present without acute finding. No traumatic injury to the chest identifiable. No acute traumati c injury to soft tissues of the abdomen and pelvis. Patient has a large hiatal hernia with all of th e stomach intrathoracic. Compression fracture changes are present throughout the thoracic and lumbar spine, sparing L5-L1 compression fracture and is potentially new L1 changes do not encroach in the c entral canal. Tib-fib x-ray, osteopenia with no fracture or acute bone finding. Negative for right humerus examination. Negative left humerus examination. Negative left femur examination for acute f inding. Negative right femur examination. Assessment: 83-year-old female with: 1.Jsv-MH-qtvtjayzc myocardial infarction. Patient's troponin is 4.32. No acute EKG changes. Does have nonspecific changes. Dr. Garcia has been consulted by the ER. Patient is not a good candidate for any major invasive measurements or cardiac catheterization. We will start on aspirin, statin, be ta-alonso, and therapeutic Lovenox. 2.Acute rhabdomyolysis. CK level is 1400, likely due to being down. We will continue with IV fluid s and monitor CK level. 3.Status post fall, no acute fractures. Possible L1 fracture, questionable. Patient has severe kyp hosis and previous lumbar fractures. We will monitor fall precautions. PT. We will check UA as wel l for possible urinary tract infection. 4.Essential hypertension. We will resume home medications as appropriate. 5.Gastroesophageal reflux disease. Continue PPI. 6.Severe osteopenia and osteoporosis. Plan: Admit patient to ICU, place as inpatient. Length of stay greater than 2 midnights. Overall poor prognosis. Code status was discussed with the son who at this point wants to keep the patient full code. /STEPHANE Voice ID: [id number]
[2019-09-11] MEDS: NA CHLORIDE 0.9% 1,000 ML IV SCH ×4 (02:53→22:00)
[2019-09-11 05:02] LABS: Absolute Lymphocytes (CBC) 0.2 K/uL (0.7-4.9); Basophils % 0.1 % (0-1.3); Hematocrit 34.7 % (36.0-45.0); Lymphocytes % 2.6 % (15.3-44.8); MPV 8.6 fL (7.6-11.3); RBC Red Blood Cell Count 3.63 M/uL (3.86-4.86)
[2019-09-11 05:32] LABS: BUN Blood Urea Nitrogen 23 mg/dL (7-18); Bicarbonate 24 mmol/L (21-32); Glucose Level 174 mg/dL (74-106); Potassium 3.7 mmol/L (3.5-5.1); Sodium Level 135 mmol/L (136-145)
[2019-09-11 05:34] LABS: Creatine Phosphokinase 1455 U/L (26-192)
--- NOTE | 2019-09-11 06:35 | EKG ---
Test Date: 2019-09-10 Test Time: 10:23:53 Cotton Grader: SADIA MEASUREMENT RESULTS: Intervals: Rate: 97 [place]: 158 QRSD: 86 QT: 396 QTc: 502 [place]: P: 67 [place]: 158 QRS: -31 T: -31 INTERPRETIVE STATEMENTS: Normal sinus rhythm Left axis deviation T wave abnormality, consider lateral ischemia Prolonged QT Abnormal ECG Compared to ECG 07/14/2018 16:27:48 Left-axis deviation now present T-wave abnormality now present Electronically Signed On 09-11-19 06:35:22 AUTOMATIC OVEN OPERATOR by Warren Garcia
[2019-09-11] MEDS: ASPIRIN EC 81 MG TAB PO SCH (09:00)
[2019-09-11] MEDS: METOPROLOL TAR 50 MG TAB PO SCH ×2 (09:00→21:00)
[2019-09-11] MEDS: HYDRALAZINE HCL 20 MG/ML VIAL IV PRN ×2 (09:42→15:14)
[2019-09-11] MEDS: ENOXAPARIN 30 MG/0.3 ML SQ SCH ×2 (09:43→22:00)
[2019-09-11] MEDS: PANTOPRAZOLE 40 MG INJ IVP SCH (11:19)
[2019-09-11] MEDS ORDERED: NA CHLORIDE 0.9% 1,000 ML IV SCH (12:00)
--- NOTE | 2019-09-11 12:04 | RAD REPORT ---
EXAM DESCRIPTION: RAD - Chest Single View - 09/11/2019 11:57 am CLINICAL HISTORY: shortness of breath Chest pain. COMPARISON: Chest Single View dated 07/14/2018; Chest Single View dated 02/27/2016; Chest Single View dated 02/26/2016; CHEST SINGLE VIEW dated 11/01/2015 FINDINGS: Portable technique limits examination quality. Mild pulmonary edema suspected. The heart is moderately enlarged in size. Hiatal hernia is likely pre sent. IMPRESSION: Mild CHF noted.
[2019-09-11 12:28] LABS: Arterial Blood Carboxyhemoglob 1.6 % (0-1.5); Blood Gas Oxyhemoglobin 90.7 % (94-97); Blood O2 Saturation 92.5 % (92-98.5)
--- NOTE | 2019-09-11 14:42 | CON ---
Identification: 83-year-old woman. Reason For Consult: Elevated troponin. History Of Present Illness: Patient was discovered lying on the floor and unable to stand up obtunde d and very ill. She was discovered in this condition by her son. The son brought her to the [facility] and among a variety of tests that were done, troponins were done and they were elevated. The patie nt does not have any complaint, but she is for the most part noncommunicative. She moans and seems t o answer a few questions. She looks like a patient who probably has not eaten well for several weeks or months. When we tried to feed her some Ensure or similar thing, she choked. She is going to eit her need feeding tube or parenteral nutrition to get her back. We do not really have history of a fa ll, but we suspect she fell to the floor. There were no fractures of humerus or femur or tibia or fi bula. Patient has been in our hospital in the past. We have an admission for her in July 2018, at which time she was admitted for syncope and she had an echocardiogram that looked pretty much norm al and carotid Dopplers that looked normal. She was communicative in talking and I do not think she was emaciated at that time. None of the dictations from that admission show this severe emaciation t hat we see today. Medications: Outpatient medications listed is omeprazole, alendronate, and iron fumarate, but we act ually do not think she has been taking those medications for some time. Allergies: NO ALLERGIES ARE KNOWN. Social History: I do not think she is a tobacco user. Physical Examination: General: She is 5 feet 5 inches, 68 pounds, extremely emaciated, underweight body mass index is 11. She has temporal wasting. I do not see that there is any fat in her body at all. Lungs: Do not reveal crackles or wheeze. Heart: Within normal limits. Diagnostic Studies: She has not had a traditional chest x-ray, but a CAT scan included her chest. S he has compression fractures, but no acute traumatic injury. No evidence of a pulmonary mass or abdo quang mass. Her troponins are very elevated. They have been drawn 3 times, that is 4.32, 3.36, 4.55 . This pattern is consist with diffuse myocardial injury probably from her overall debilitated, maln ourished, dehydrated state. She is going to get some nutrition, trying to treat her elevated blood p ressure, rehydrate her and learn what we can do. Tomorrow, we will do an echocardiogram at the [facility] and learn what we can do about her heart, a year ago was normal. Assessment And Plan: I suspect all of the patient's problems are due to her malnutrition, which is s evere and not an acute coronary syndrome. In any event, I do not think there is any likelihood of an y benefit from doing a heart catheterization. She needs nutrition and we can do a noninvasive workup if and when she becomes more well-nourished and conversant. We know what the patient actually wishe s. Right now, she is lethargic to obtunded. JEB/MODL Voice ID: [id number] Report ID: [id number]
--- NOTE | 2019-09-11 15:05 | PN ---
Date of Progress Note: 09/11/2019 Subjective: Patient is seen and examined. Chart reviewed and case discussed with RN. Patient appears in some mild distress, still trying to get out of bed , had a fall yesterday in the ER. Medications: List reviewed. Physical Examination: Vital Signs: Temperature 97, heart rate 112, blood pressure 150/85, respirations 25, O2 of 96% on room air. General: Awake, alert, and oriented x2, elderly female, ill-appearing, severely cachectic, BMI 11. CV: S1, S2. Sinus tachycardia. Peripheral pulses weak. Respiratory: Patient is tachypneic with use of accessory muscles. No wheezing or stridor. Gastrointestinal: Abdomen is soft, nontender, nondistended. Positive bowel sounds. No guarding or rigidity. Extremities: No clubbing, cyanosis, or edema. No calf tenderness. Neurologic: Nonfocal. Musculoskeletal: Severe kyphosis. Laboratory Data: Sodium 135, potassium 3.7, chloride 102, CO2 of 24, BUN 23, creatinine 0.55, glucose 174, calcium 8.3, creatine kinase is 1455. Troponin levels 4.32, 3.36, 4.55. Triglycerides 69, cholesterol 183, LDL 72, HDL 97. WBC 7.3, H and H of 11.7 and 34.7, platelets 109, neutrophils 93%. UA is negative. Assessment: 83-year-old female with: 1. Pvs-AX-kixtpzzws myocardial infarction. We will continue with medical management. Not a candidate for acute intervention. Cardiology has been consulted. Continue on aspirin, statin, beta-alonso, therapeutic Lovenox. 2. Acute rhabdomyolysis. CK levels worsening secondary to fall and being down for several hours. Continue with IV fluids. 3. Hyponatremia, improved. Continue to monitor. 4. Status post fall. No fractures seen other than possible L1 fracture which is questionable. UA is also negative. We will continue with fall precautions. Patient had recurrent fall in the ER. 5. Essential hypertension, not well controlled. We will add hydralazine p.r.n. 6. Gastroesophageal reflux disease. Continue PPI IV. 7. Severe osteopenia and osteoporosis. 8. Disposition. Continue to monitor in ICU setting. Patient is currently full code. Would recommend hospice for this patient. We will have a discussion with son again, currently she still wants full code at this time. 9. Severe malnutrition. BMI is 11.3. Patient has lost 10 lbs in the past 2-3 months. May have underlying malignancy. Has not had a scope, mammogram or pap smear in the near past. ADDENDEUM 16:49 Spoke with son at length. He does have power of spool maker. I explained to him and his that patient has a poor prognosis. She will get an echo in am and we will evaluate her cardiac function. She is not a candidate for intervention. She is severely cachectic, has been losing wt, mildly demented and has had multiple falls with back fractures in the setting of severe osteopenia. I recommended DNR for the patient as CPR would be very traumatic resulting in multiple rib fractures, possible lung trauma, hemothorax among other complications. Family will discuss further. CARLYLE Voice ID: [id number] Report ID: [id number] MTDD
[2019-09-12 05:14] LABS: Absolute Lymphocytes (CBC) 0.2 K/uL (0.7-4.9); Basophils % 0.5 % (0-1.3); Hematocrit 31.8 % (36.0-45.0); Lymphocytes % 1.7 % (15.3-44.8); MPV 9.8 fL (7.6-11.3); RBC Red Blood Cell Count 3.33 M/uL (3.86-4.86)
--- NOTE | 2019-09-12 05:30 | EKG ---
Test Date: 2019-09-10 Test Time: 12:28:44 Automatic Bow Maker Machine Tender: LEONEL MEASUREMENT RESULTS: Intervals: Rate: 95 [place]: 186 QRSD: 78 QT: 422 QTc: 530 [place]: P: 55 [place]: 186 QRS: -33 T: 8 INTERPRETIVE STATEMENTS: Normal sinus rhythm Left axis deviation T wave abnormality, consider lateral ischemia Prolonged QT Abnormal ECG Compared to ECG 09/10/2019 12:27:21 no significant change from previous ECG Electronically Signed On 09-12-19 05:30:20 INTERNATIONAL BANKER by Warren Garcia
[2019-09-12 05:50] LABS: BUN Blood Urea Nitrogen 34 mg/dL (7-18); Bicarbonate 22 mmol/L (21-32); Glucose Level 144 mg/dL (74-106); Potassium 3.4 mmol/L (3.5-5.1); Sodium Level 139 mmol/L (136-145)
[2019-09-12 05:54] LABS: Creatine Phosphokinase 1092 U/L (26-192)
[2019-09-12] MEDS: ENOXAPARIN 30 MG/0.3 ML SQ SCH (09:00)
[2019-09-12] MEDS: NA CHLORIDE 0.9% 1,000 ML IV SCH (09:00)
[2019-09-12] MEDS: ASPIRIN EC 81 MG TAB PO SCH (09:00)
[2019-09-12] MEDS: METOPROLOL TAR 50 MG TAB PO SCH ×2 (09:00→21:00)
[2019-09-12] MEDS ORDERED: MORPHINE 2 MG/ML SYR IV PRN (09:13)
--- NOTE | 2019-09-12 10:15 | RAD REPORT ---
EXAM DESCRIPTION: RAD - Chest Single View - 09/11/2019 10:46 pm CLINICAL HISTORY: 83 years Female, S/P PICC insertion COMPARISON: None. TECHNIQUE: Single portable x-ray view of the chest performed on 09/11/2019 10:43 PM FINDINGS: The lungs are well expanded. There is mild generalized interstitial prominence which could reflect interstitial lung disease or interstitial edema. The lateral costophrenic sulci are grossly clear. There is a retrocardiac lucency which could indicate a hiatal hernia. There is no evidence of a pneumothorax. The cardiac silhouette is mildly prominent. The mediastinal contours are normal. No acute osseous abnormality is identified. No focal soft tissue abnormalities are seen. Lines and tubes: A right upper extremity PICC line catheter is present. The tip overlies the region of the cavoatrial junction. IMPRESSION: 1. The tip of the right upper extremity PICC line catheter overlies the region of the ca voatrial junction. 2. Retrocardiac lucency which could indicate a hiatal hernia. 3. Mild generalized interstitial prominence possibly reflecting interstitial edema or mild chronic in terstitial lung disease. Electronically signed by: Amira Small DO 09/11/2019 11:12 PM EXERCISE SCIENCE INSTRUCTOR Due to temporary technical issues with the PACS/Fluency reporting system, reports are being signed by the in house radiologist as a courtesy to ensure prompt reporting. The interpreting radiologist is f ully responsible for the content of the report.
[2019-09-12] MEDS: AA 5%/D20W/ELECTROLYTES-TPN 2,000 ML, Lipids 20% 250 ML with MULTIVITAMINS INJ 10 ML IV SCH ×3 (10:37)
[2019-09-12] MEDS: PANTOPRAZOLE 40 MG INJ IVP SCH (10:39)
--- NOTE | 2019-09-12 11:29 | ECHO ---
HEIGHT: 4 ft 4 in WEIGHT: 68 lb 3.2 oz DATE OF STUDY: 09/12/[address]: Alexandro Olson MD 2-DIMENSIONAL: YES M.MODE: YES DOPPLER: YES COLOR FLOW: YES TDS: NO PORTABLE: YES DEFINITY: NO BUBBLE STUDY: NO DIAGNOSIS: NSTEMI CARDIAC HISTORY: CATHERIZATION: SURGERY: PROSTHETIC VALVE: PACEMAKER: MEASUREMENTS (cm) DIASTOLIC (NORMALS) SYSTOLIC (NORMALS) IVSd 0.9 (0.6-1.2) LA Diam 3.3 (1.9-4.0) LVEF 50% LVIDd 4.2 (3.5-5.7) LVIDs 3.2 (2.0-3.5) %FS 25% LVPWd 1.0 (0.6-1.2) Ao Diam 2.2 (2.0-3.7) 2 DIMENSIONAL ASSESSMENT: RIGHT ATRIUM: NORMAL LEFT ATRIUM: NORMAL RIGHT VENTRICLE: NORMAL LEFT VENTRICLE: NORMAL TRICUSPID VALVE: NORMAL MITRAL VALVE: NORMAL PULMONIC VALVE: NORMAL AORTIC VALVE: SCLEROSIS PERICARDIAL EFFUSION: NONE AORTIC ROOT: NORMAL LEFT VENTRICULAR WALL MOTION: SEPTAL HYPOKINESIS. DOPPLER/COLOR FLOW: MILD TO MODERATE TRICUSPID REGURGITATION. ESTIMATED RIGHT VENTRICULAR SYSTOLIC PRESSURE 45 mmHg. MILD PULMONARY HYPERTENSION. COMMENTS: MILDLY DEPRESSED LEFT VENTRICULAR EJECTION FRACTION WITH WALL MOTION ABNORMALITY. AORTIC SCLEROSIS WITH NO AORTIC STENOSIS OR AORTIC REGURGITATION. MILD TO MODERATE TRICUSPID REGURGITATION. MILD PULMONARY HYPERTENSION. TECHNOLOGIST: Deep MCKEE
[2019-09-12 13:27] LABS: Prealbumin 8.8 mg/dL (20-40)
--- NOTE | 2019-09-12 14:04 | PN ---
Date of Progress Note: 09/12/2019 Subjective: Patient is seen and examined. Chart reviewed and case discussed with RN and family at t he bedside. Treatment plan explained, all questions answered. Patient complaining of pain all over her body. Medications List: Reviewed. Physical Examination: Vital Signs: Temperature 98.1, heart rate 98, blood pressure 154/89, respirations 25, O2 of 95% on r oom air. General: Awake, alert, in moderate distress, ill-appearing elderly female, frail, cachectic. BMI 17 . CV: S1, S2. Regular rate and rhythm. Peripheral pulses present. Respiratory: Diminished breath sounds. No wheezing or stridor. Gastrointestinal: Abdomen is soft, nontender, nondistended. Positive bowel sounds. Extremities: No clubbing, cyanosis, or edema. Musculoskeletal: Patient has her neck extended. Has some tenderness to palpation in her back. Laboratory Data: Sodium 139, potassium 3.4, chloride 106, CO2 of 22, BUN 34, creatinine 0.46, glucos e 144, calcium 8.5. CK level is 1092. WBC 9, H and H of 10.7 and 31.8, platelets 95, neutrophils 92 %. Assessment And Plan: 83-year-old female with: 1.Qhk-YM-qlwkvuqsr myocardial infarction. Continue with chest pain guidelines. Appreciate Cardiolo gy input. Patient is not a candidate for heart catheterization. Patient is on therapeutic Lovenox. However, the platelet levels are dropping, may need to adjust. 2.Acute rhabdomyolysis. CK levels somewhat improved. We will continue with IV fluids. 3.Dysphagia. The patient is pending for speech therapy evaluation. Patient unable to tolerate Dobb yan feeding tube. We will start on TPN for now. 4.Severe protein-calorie malnutrition. BMI 17. Dietitian involved, to be started on TPN. Pending speech eval. 5.Hyponatremia, corrected. 6.Status post fall, questionable for L1 fracture. 7.Essential hypertension, not well controlled. Continue home medications. 8.Gastroesophageal reflux disease. We will continue IV PPI. 9.Severe osteopenia and osteoporosis. 10.Deep vein thrombosis prophylaxis with Lovenox. 11.Thrombocytopenia. We will likely need to adjust Lovenox dose. Plan: Continue monitor in ICU setting. Overall, she has a poor prognosis. I had a long discussion with son yesterday as well as the daughter in-law today. Recommend at least DNR for this patient. I f not, care and comfort measures. Son is to bring in his medical power of paper machine supervisor paperwork. CARLYLE Voice ID: [id number] Report ID: [id number]
[2019-09-12 17:25] LABS: Absolute Lymphocytes (CBC) 0.1 K/uL (0.7-4.9); Basophils % 0.1 % (0-1.3); Hematocrit 29.6 % (36.0-45.0); Lymphocytes % 1.3 % (15.3-44.8); MPV 10.2 fL (7.6-11.3); RBC Red Blood Cell Count 3.11 M/uL (3.86-4.86)
--- NOTE | 2019-09-12 17:54 | P.PN ---
Date of Service: 09/12/19 Patient had scott red blood from the vagina. Will Dc Lovenox. Consult OBGYN. Obtain transvaginal ultrasound. Repeat H&H. Spoke with son who is a medical [id number]-yqfawfqa he wished to change to go status to DO not attempt resuscitation. Other son present at the bedside as well.
[2019-09-12 17:57] LABS: Blood Morphology Comment NOT SEEN (NOT SEEN); Platelet Estimate DECR; Urine White Blood Cell Casts OK
--- NOTE | 2019-09-12 19:38 | RAD REPORT ---
EXAM DESCRIPTION: US - Transvaginal Study Probe - 09/12/2019 7:27 pm CLINICAL HISTORY: Vaginal bleeding COMPARISON: None. TECHNIQUE: Endovaginal and transabdominal sonography performed. FINDINGS: Very little endovaginal imaging could be performed. Patient was unable to tolerate the exa mination. Transabdominal imaging was also very limited. Bladder is contracted. By report patient is s tatus post hysterectomy. A uterus is not identified. Neither ovary was identifiable. No adnexal mass is seen. No free fluid seen. Exam should be considered very limited. IMPRESSION: Very limited post hysterectomy examination. Neither ovary identifiable.
[2019-09-13] MEDS ORDERED: D5W 1,000 ML IV SCH (01:00)
[2019-09-13 06:10] VITALS: BMI 19.3
[2019-09-13] MEDS ORDERED: D50W 25 GM/50 ML SYRINGE/VIAL IV PRN (07:33)
[2019-09-13] MEDS ORDERED: GLUCAGON 1 MG/VIAL IM PRN (07:33)
[2019-09-13] MEDS: METOPROLOL TAR 50 MG TAB PO SCH ×2 (09:00→21:00)
[2019-09-13] MEDS: ASPIRIN EC 81 MG TAB PO SCH (09:00)
[2019-09-13] MEDS ORDERED: ENOXAPARIN 30 MG/0.3 ML SQ SCH (09:00)
[2019-09-13] MEDS: PANTOPRAZOLE 40 MG INJ IVP SCH (09:01)
[2019-09-13] MEDS: SODIUM CHLORIDE 0.9% 10ML INJ IV PRN (09:02)
[2019-09-13] MEDS: THIAMINE 200 MG/2 ML INJ IVP SCH (09:04)
[2019-09-13] MEDS: INSULIN -REGULAR HUMAN 50 UNIT/0.5 ML ML SQ SCH ×3 (09:05→18:00)
[2019-09-13 09:22] LABS: Absolute Lymphocytes (CBC) 0.1 K/uL (0.7-4.9); Hematocrit 28.8 % (36.0-45.0); Lymphocytes % 1.3 % (15.3-44.8); MPV 9.2 fL (7.6-11.3); RBC Red Blood Cell Count 3.01 M/uL (3.86-4.86)
[2019-09-13 09:42] LABS: BUN Blood Urea Nitrogen 41 mg/dL (7-18); Bicarbonate 28 mmol/L (21-32); Glucose Level 203 mg/dL (74-106); Magnesium 2.4 mg/dL (1.8-2.4); Phosphorus 1.4 mg/dL (2.5-4.9); Potassium 3.5 mmol/L (3.5-5.1); Sodium Level 141 mmol/L (136-145)
[2019-09-13] MEDS: AA 5%/D20W/ELECTROLYTES-TPN 2,000 ML, Lipids 20% 250 ML with MULTIVITAMINS INJ 10 ML IV SCH ×3 (10:29)
[2019-09-13 11:14] LABS: Blood Morphology Comment NOT SEEN (NOT SEEN); Platelet Estimate DECR
--- NOTE | 2019-09-13 11:46 | P.PN ---
Subjective Date of Service: 09/13/19 Patient seen and examined at bedside today. Discussed with patient's son and wfoxznak-vj-twd at bedside. Patient is altered, drowsy. No further bleeding from vaginal area however and nursing noted hematuria. Review of Systems is unable to be obtained (mental status) Physical Examination - Vital Signs Temperature: 97.6 F Blood Pressure: 122/83 Pulse: 94 Respirations: 23 Pulse Ox (%): 96 - Physical Exam General: Cachectic, Mild distress HEENT: Atraumatic, Normocephalic, Other (Dry MM) Neck: Supple, JVD not distended Respiratory: Diminished, Rhonchi/gurgles Cardiovascular: No edema, Normal pulses, Normal S1 S2 Gastrointestinal: Normal bowel sounds, Non-distended, No tenderness Musculoskeletal: No clubbing, No swelling Integumentary: No rashes - Studies Laboratory Tests 09/13/19 09/13/19 09/13/19 05:08 09:14 09:14 WBC 8.2 RBC 3.01 L Hgb 9.9 L Hct 28.8 L Plt Count 84 L Neutrophils % 93.1 H Sodium 141 Potassium 3.5 Chloride 108 H BUN 41 H Creatinine 0.49 L Glucose 203 H Phosphorus 1.4 L Magnesium 2.4 Creatine Kinase 501 H TSH 09/13/19 09:14 WBC RBC Hgb Hct Plt Count Neutrophils % Sodium Potassium Chloride BUN Creatinine Glucose Phosphorus Magnesium Creatine Kinase TSH 1.650 Medications List Reviewed: Yes Assessment And Plan - Plan Ms Rosa is 83 female presented with #NSTEMI-patient was initially started on Lovenox, now discontinued due to hematuria/vaginal bleeding. -cardiology following, appreciate recommendation. -patient is not a candidate for cardiac catheterization. -discussed with family. #Hematuria- initially thought to be vaginal bleeding. Patient is status post hysterectomy. Pelvic ultrasound noted. Will Dc consult for chemical equipment repairer. -family to discuss plan of care father. -urinalysis with straight cath pending -stable H&H #Acute rhabdomyolysis-secondary to prolonged immobilization after a fall. -CK levels improved. -will continue trending. #Dysphagia-failed speech therapy evaluation multiple times. Unable to tolerate the Dobhoff feeding. -patient is currently on TPN. -PEG tube is next line however patient is a high risk. -discussed extensively with the son who is the medical power of trade mark attorney at bedside. #Severe protein caloric malnutrition-all stated weight loss for the past 2 months the family. BMI currently of 17. -dietitian involved. -patient remains on TPN. #Hyponatremia-corrected. #Status post fall-questionable possible L1 fracture. -pain control if patient appears to be in pain. #Hypertension-monitor blood pressure closely. # Severe osteopenia and osteoporosis -outpatient treatment. # Thrombocytopenia-stable. DVT prophylaxis-SCD Patient is a do not resuscitate. Discussed the patient 's MPOA & qenizedn-tj-nzq. Patient will go benefit from hospice care. Family to discuss further. # disposition-okay to transfer out of ICU. - Code Status/Comfort Care Code Status Assessed: Yes Code Status: Do Not Intubate
--- NOTE | 2019-09-13 12:47 | CON ---
Date of Consultation: 09/12/2019 Chief Complaint: Hyponatremia. History Of Present Illness: Patient on arrival to the hospital was evaluated and sodium level was 131, potassium 3.4. Patient had prerenal azotemia. BUN was up to 21 and has been increased up to 34, creatinine remains within normal limits. Patient was found to have elevated CK level and it was up to 1408, was gradually improving to 1092. Patient was evaluated for rhabdomyolysis. Renal function remains within the same range. Urinalysis showed 2+ blood, which may correlate with rhabdomyolysis and myoglobinuria. Urinalysis did not show red blood cells on microscopic evaluation. Nephrology consultation is requested for rhabdomyolysis. Patient was found to have multiple electrolyte abnormalities including hypokalemia and hyponatremia. Sodium level has been improving. Patient was seen by tree specialist for elevated troponin. Patient was found after she sustained fall and she was found on the floor. She was unable to stand up. She was obtunded and very ill. She was found by her son and brought to the hospital and workup was initiated for acute coronary syndrome. Patient was found to have high troponin level and is admitted to ICU. CK level remains elevated, which goes along with status post falls and rhabdomyolysis due to fall. Patient was evaluated for fracture. There was no fracture of the humerus, femur, tibia or fibula. She was previously admitted to the hospital in July 2019. At that time, she was admitted for syncope, had echo done which looked within normal limits. She had carotid Dopplers done and it was without major abnormalities. Review of Systems: Cannot be obtained. Patient remains somewhat confused. She answer question, but she is confused. Past Medical History: Hypertension. However, patient was taken off blood pressure medication due to blood pressure being on low side and within normal ranges without medication. Gastroesophageal reflux disease, vitamin D deficiency, osteoporosis. Past Surgical History: Hysterectomy. Social History: Negative for tobacco, alcohol, and illicit drugs. Physical Examination: General: Patient is not in acute distress. Eyes: Anicteric sclerae. EOMI. Ears, Nose, Mouth, and Throat: Oral mucosa moist. No pallor. Neck: Supple. No bruits. Lungs: Clear to auscultation bilaterally. Heart: S1, S2. No pericardial friction rub Abdomen: Soft, benign. No rebound Extremities: No edema. No clubbing Skin: warm and dry no oozing Neurologic: no tremor , Cn intact Laboratory Data: Urinalysis showed pH pending and specific gravity 1.020, ketone trace, blood 2+, nitrites negative, leukocyte esterase negative, urine protein 2+, glucose trace, wbc less than 5, rbc less than 5. Hemoglobin 10.0, WBC 9.0, platelet count 104,000. Sodium 139, potassium 3.4, chloride 106, CO2 of 22, BUN 34, creatinine 0.46, glucose 144, calcium 8.5. CK level 1992. Albumin 3.0 and pre-albumin 8.8. Impression And Plan: 1. Rhabdomyolysis status post fall. Patient has hyponatremia and hypokalemia. Plan is to check magnesium and phosphorus level and make adjustment with replacement of electrolytes. 2. Hypertension. Blood pressure is controlled. 3. Elevated troponin. Patient will have further workup with Cardiology. Rhabdomyolysis due to status post fall. Monitor CK level. Continue IV fluids to prevent acute kidney injury due to rhabdomyolysis. 4. Proteinuria. Patient has hypoalbuminemia. Plan is to check urine protein electrophoresis. SHAGGY/STEPHANE Voice ID: [id number] Report ID: [id number]
--- NOTE | 2019-09-13 13:43 | RAD REPORT ---
EXAM DESCRIPTION: US - Renal Ultrasound-Complete - 09/13/2019 1:34 pm CLINICAL HISTORY: ^rhabdomyolysis , ckd, radha COMPARISON: November 2016 renal ultrasound FINDINGS: The right kidney measures 8.3 x 3.3 x 4.8 cm. The left kidney measures 7.6 x 3.5 x 3.5 cm . Adjusting for differences in technique and image selection, renal parenchymal size in volume not bai bstantially different from the 2017 study.. Renal cortical thickness normal. No hydronephrosis or buck picious renal mass. Increase in cortical thickness could be medical renal disease or body habitus. Ex am was limited secondary to patient immobility. Bladder was contracted limiting assessment. IMPRESSION: No hydronephrosis or suspicious renal mass. Increased cortical echogenicity could be from medical renal disease or technical artifact due to body habitus and patient immobility
--- NOTE | 2019-09-13 18:17 | PN ---
Date of Progress Note: 09/13/2019 Subjective: Patient was admitted with non-ST [id number] CA, rhabdomyolysis without significant acute kidney injury. Patient was started on hydration. Patient has failure to thrive. Patient was started on TPN. Upon presentation, CK was above 1000, currently trending down. Patient still confu sed. Physical Examination: Vital Signs: When I saw, the patient's blood pressure 122/83, pulse of 94. Afebrile. Chest: Clear to auscultation. Heart: S1, S2. Systolic murmur. Abdomen: Soft, nontender. Extremities: No edema. Neuro: Alert, not oriented. Laboratory Data: WBC 8.2, H and H 9.9/28.3. Sodium 141, potassium 3.5, bicarb 28, BUN 41, creatinin e 0.4, calcium 8.3, phos 1.4, magnesium of 2.4, albumin of 3. TSH 1.6. CK down to 500. Current Medications: The patient is on metoprolol 25 b.i.d., Tylenol, pantoprazole, insulin, D5, mor phine, multivitamin, thiamine. Assessment And Plan: 1.Rhabdomyolysis secondary to fall. On the recovery, we will continue hydration. 2.Hypertension, controlled, optimal. Continue current medications. 3.Hypokalemia. Patient was started on TPN. We will follow up labs. 4.Hypophosphatemia secondary to failure to thrive. Patient was started on TPN. We will follow up a fter. WILLIE/STEPHANE Voice ID: [id number] Report ID: [id number]
--- NOTE | 2019-09-13 21:38 | PN ---
Date of Progress Note: 09/13/2019 Ms. Rosa had came in with non-ST elevation myocardial infarction on 09/10/2019. She has been foll owed by Dr. Jose Olson. Patient remains malnourished and lethargic. She is a do not resuscitate. Her troponin was elevated, but her echocardiogram showed no wall motion abnormalities. Normal eject ion fraction, aortic sclerosis. She has mild pulmonary hypertension with a right ventricular systoli c pressure of 45 mmHg. Yesterday had an episode of vaginal bleeding. She is not on Lovenox anymore. H and H are pending. From a cardiovascular standpoint, we need to continue her present regimen. N o plans for any coronary intervention. At this point, we will sign off her case and will be availabl e for questions if the need arises. MICHELLE/STEPHANE Voice ID: [id number] Report ID: [id number]
[2019-09-14 04:59] LABS: Albumin 2.6 g/dL (3.4-5.0); Magnesium 2.3 mg/dL (1.8-2.4); Phosphorus 2.8 mg/dL (2.5-4.9); Potassium 3.8 mmol/L (3.5-5.1)
[2019-09-14] MEDS: INSULIN -REGULAR HUMAN 50 UNIT/0.5 ML ML SQ SCH ×4 (05:29→18:00)
[2019-09-14] MEDS: METOPROLOL TAR 50 MG TAB PO SCH (07:40)
[2019-09-14] MEDS: ASPIRIN EC 81 MG TAB PO SCH (07:40)
[2019-09-14] MEDS: PANTOPRAZOLE 40 MG INJ IVP SCH (10:05)
[2019-09-14] MEDS: THIAMINE 200 MG/2 ML INJ IVP SCH (10:05)
[2019-09-14] MEDS: SODIUM CHLORIDE 0.9% 10ML INJ IV PRN (10:05)
[2019-09-14] MEDS: AA 5%/D20W/ELECTROLYTES-TPN 2,000 ML, Lipids 20% 250 ML with MULTIVITAMINS INJ 10 ML IV SCH ×3 (11:12)
--- NOTE | 2019-09-14 11:43 | P.PN ---
Subjective Date of Service: 09/14/19 No change. Family at bedside. Awaiting hospice consultation No more bleeding Physical Examination - Vital Signs Temperature: 97.5 F Blood Pressure: 130/61 Pulse: 90 Respirations: 16 Pulse Ox (%): 97 - Physical Exam General: Cachectic, Mild distress HEENT: Atraumatic, Other (Dry MM) Respiratory: Diminished, Rhonchi/gurgles Cardiovascular: Regular rate/rhythm, Normal S1 S2 Gastrointestinal: No tenderness, No guarding Musculoskeletal: Tenderness Integumentary: Rash(es), Skin lesion Neurological: Abnormal speech - Studies Medications List Reviewed: Yes Assessment And Plan - Plan Ms Rosa is 83 female presented with #NSTEMI-patient was initially started on Lovenox, now discontinued due to hematuria/vaginal bleeding. -cardiology following, appreciate recommendation. -patient is not a candidate for cardiac catheterization. -discussed with family. #Hematuria- initially thought to be vaginal bleeding. Patient is status post hysterectomy. Pelvic ultrasound noted. Will Dc consult for car repairer helper. -family to discuss plan of care father. -urinalysis with straight cath pending -stable H&H #Acute rhabdomyolysis-secondary to prolonged immobilization after a fall. -CK levels improved. -will continue trending. #Dysphagia-failed speech therapy evaluation multiple times. Unable to tolerate the Dobhoff feeding. -patient is currently on TPN. -PEG tube is next line however patient is a high risk. -discussed extensively with the son who is the medical power of deputy county attorney at bedside. #Severe protein caloric malnutrition-all stated weight loss for the past 2 months the family. BMI currently of 17. -dietitian involved. -patient remains on TPN. #Hyponatremia-corrected. #Status post fall-questionable possible L1 fracture. -pain control if patient appears to be in pain. #Hypertension-monitor blood pressure closely. # Severe osteopenia and osteoporosis -outpatient treatment. # Thrombocytopenia-stable. DVT prophylaxis-SCD Patient is a do not resuscitate. Discussed the patient 's MPOA & [id number]. awaiting meeting with hospice
--- NOTE | 2019-09-14 13:26 | P.PN ---
Subjective Date of Service: 09/15/19 Chief Complaint: NSTEMI, rhabdomyolysis, weakness Subjective: New changes (Increase confusion, moaning. On floor now. Hospice being arranged. On TPN. RNs unable to place DHT.) Review of Systems 10-point ROS is otherwise unremarkable General: Weakness, Malaise Neurological: Confusion Physical Examination - Vital Signs Temperature: 97.5 F Blood Pressure: 130/61 Pulse: 90 Respirations: 16 Pulse Ox (%): 97 - Physical Exam General: Alert, Cachectic, Mild distress HEENT: Atraumatic, Normocephalic Neck: Supple Respiratory: Diminished Cardiovascular: Normal pulses Gastrointestinal: Soft and benign, No tenderness, No rebound, No guarding Neurological: Normal speech, Normal strength at 5/5 x4 extr - Studies Medications List Reviewed: Yes Assessment And Plan - Current Problems (Diagnosis) (1) NSTEMI (non-ST elevated myocardial infarction) Current Visit: Yes Status: Acute (2) Rhabdomyolysis Current Visit: Yes Status: Acute (3) Hematuria Current Visit: Yes Status: Acute (4) Dysphagia Current Visit: Yes Status: Acute (5) Malnutrition Current Visit: Yes Status: Acute (6) Hypertension Onset Date: 07/15/18 Current Visit: No Status: Chronic Qualifiers: Hypertension type: essential hypertension (7) Osteoporosis Onset Date: 07/15/18 Current Visit: No Status: Chronic Qualifiers: Osteoporosis type: unspecified Presence of current pathological fracture: without current pathological fracture Qualified Code(s): M81.0 - Age-related osteoporosis without current pathological fracture - Plan REC: 1) continue TPN 2) await hospice 3) consider IR (interventional radiology) placed PEG
[2019-09-14] MEDS: LORazepam 2 MG/ML VIAL IV PRN (16:06)
--- NOTE | 2019-09-15 00:02 | PN ---
Date of Progress Note: 09/14/2019 Subjective: Patient was admitted with rhabdo secondary to fall with no significant acute kidney inju ry. Patient after hydration started to recover. Physical Examination: Vital Signs: When I saw the patient, blood pressure 130/61, pulse of 90. Patient had good urine out put of 1400, positive 1500. Chest: Clear to auscultation. Heart: S1, S2. Systolic murmur. Abdomen: Soft, nontender. Extremities: No edema. Laboratory Data: WBC 8.2, H and H 9.9/28.8, platelets 84. Sodium 142, potassium 3.8, bicarb 32, BUN 15, creatinine 1, calcium 8.3, phosphorus 2.8, magnesium 2.3, albumin 2.6. Current Medications: The patient on: 1.PPN. 2.Lorazepam. 3.Hydralazine. 4.Insulin. 5.IV fluid. 6.Thiamine. Assessment And Plan: 1.Rhabdomyolysis, recovered, resolved. Discontinue IV fluid. 2.Hypertension, controlled, optimal. Continue current medication. 3.Hypokalemia, hypophosphatemia, resolved. Continue adjusting TPN. WILLIE/STEPHANE Voice ID: [id number] Report ID: [id number]
[2019-09-15 05:57] LABS: Albumin 2.7 g/dL (3.4-5.0); BUN Blood Urea Nitrogen 41 mg/dL (7-18); Bicarbonate 33 mmol/L (21-32); Glucose Level 120 mg/dL (74-106); Magnesium 2.5 mg/dL (1.8-2.4); Phosphorus 3.1 mg/dL (2.5-4.9); Potassium 4.6 mmol/L (3.5-5.1); Sodium Level 141 mmol/L (136-145)
[2019-09-15] MEDS: INSULIN -REGULAR HUMAN 50 UNIT/0.5 ML ML SQ SCH ×3 (06:00→12:00)
[2019-09-15] MEDS: METOPROLOL TAR 25 MG TAB PO SCH ×2 (06:40→09:00)
[2019-09-15] MEDS: THIAMINE 200 MG/2 ML INJ IVP SCH (08:16)
[2019-09-15] MEDS: PANTOPRAZOLE 40 MG INJ IVP SCH (08:17)
[2019-09-15 08:22] VITALS: O2SAT 91
[2019-09-15] MEDS: AA 5%/D20W/ELECTROLYTES-TPN 2,000 ML, Lipids 20% 250 ML with MULTIVITAMINS INJ 10 ML IV SCH ×6 (09:00→09:45)
[2019-09-15] MEDS ORDERED: METOPROLOL TARTRATE 5 MG/5 ML INJ IV PRN (09:24)
[2019-09-15] MEDS: LORazepam 2 MG/ML VIAL IV PRN (09:57)
--- NOTE | 2019-09-15 10:17 | P.DS ---
Admission Date: 09/10/19 Discharge Date: 09/15/19 Disposition: HOSPICE-HOME Discharge Condition: CRITICAL Reason for Admission: NSTEMI Consultations: Diabetes Educator Rounder And Backer Recruiting Manager Brief History of Present Illness: Admission diagnosis NSTEMI Failure to thrive acute rhabdomyolysis Status post fall Essential hypertension GERD Severe osteopenia and osteoporosis Hospital Course: Ms Rosa is 83y/o female with h/o severe kyphosis, osteoarthritis with previous fractures along with anemia and hypertension, GERD, severe osteoporosis , comes in after being found down by her son. It was unclear how long patient was down. She was unable to provide any history as she had some mild cognitive impairment. Initial evaluation with found the possible L1 fracture which was potentially new. Her EKG she did not show any acute ST elevation; however, patient had troponin elevation of 4.32. She was initiated on full anticoagulation and treatment supervisor Dr. Garcia was consulted. Patient was not a candidate for any major invasive measurements of cardiac catheterization therefore she was medically treated. She also had acute rhabdomyolysis on presentation, CK was measured at 1400. She was started on IV fluids and creatinine kinase was monitored. Patient's etiology of fall was on clear; however, family reported that patient has had a significant failure to thrive in the past 2 months. Her BMI on presentation was 17, consistent with severe protein calorie malnutrition. She has had significant weight loss within the past 2 months. Patient was evaluated by speech therapist due to dysphagia and she failed assessment multiple times. Recruiting Manager was consulted for PEG placement as Dobhoff tube could not be placed. GI recommended PEG placement per IR due to unstable medical condition. Patient had episode of vaginal bleeding/hematuria while on AC. Transvaginal US was not helpful as patient was s/p hysterectomy. Further work up for possible hematuria was recommended to family; however, they decided to hold off due to patient's unstable condition and decline in health. Patient's medical condition continued to deterioriate as she could not tolerate po intake. Hospice was recommended to family, MPOA made the decision and patient has been discharged home with hospice. Vital Signs/Physical Exam: Temp Pulse Resp BP Pulse Ox 97.3 F 103 H 16 126/61 91 09/15/19 08:00 09/15/19 08:00 09/15/19 08:00 09/15/19 08:00 09/15/19 08:00 General: Cooperative HEENT: Atraumatic, Other (Dry MMM) Neck: JVD not distended Respiratory: Diminished, Rhonchi/gurgles Cardiovascular: No edema, Regular rate/rhythm, Normal S1 S2 Gastrointestinal: Normal bowel sounds, Soft and benign Musculoskeletal: No clubbing Neurological: Other (minimally responsive) Laboratory Data at Discharge: WBC 8.2 K/uL (4.3-10.9) 09/13/19 09:14 Hgb 9.9 g/dL (12.0-15.0) L 09/13/19 09:14 Hct 28.8 % (36.0-45.0) L 09/13/19 09:14 Plt Count 84 K/uL (152-406) L 09/13/19 09:14 PT 10.8 SECONDS (9.5-12.5) 09/10/19 10:20 INR 0.91 09/10/19 10:20 APTT 27.9 SECONDS (24.3-36.9) 09/10/19 10:20 Sodium 141 mmol/L (136-145) 09/15/19 05:25 Potassium 4.6 mmol/L (3.5-5.1) 09/15/19 05:25 BUN 41 mg/dL (7-18) H D 09/15/19 05:25 Creatinine 0.36 mg/dL (0.55-1.3) L 09/15/19 05:25 Glucose 120 mg/dL (74-106) H 09/15/19 05:25 Phosphorus 3.1 mg/dL (2.5-4.9) 09/15/19 05:25 Magnesium 2.5 mg/dL (1.8-2.4) H 09/15/19 05:25 Troponin I 4.55 ng/mL (0.0-0.045) H* D 09/10/19 20:07 Triglycerides 100 mg/dL (<150) 09/14/19 04:34 Cholesterol 183 mg/dL (<200) 09/10/19 20:07 HDL Cholesterol 97 mg/dL (40-60) H 09/10/19 20:07 Cholesterol/HDL Ratio 1.89 09/10/19 20:07
[2019-09-15 12:16] VITALS: BP 130/61; TEMP 97.5
--- NOTE | 2019-09-16 01:37 | PN ---
Date of Progress Note: 09/15/2019 Subjective: Patient was admitted with acute kidney injury secondary to prerenal. Patient recovering very well, but her condition in general has been deteriorated. Patient was started on TPN. Physical Examination: General: When I saw the patient, patient lying in the bed, poorly responds. Vital Signs: Blood pressure of 130/61, pulse of 90. Patient had good urine output. Lungs: Just faint crackles bilateral. Heart: S1, S2. Systolic murmur. Abdomen: Soft, nontender. Extremities: No edema. Neuro: Poorly responds. Laboratory Data: H and H 9.9/28.8. Sodium , phosphorus 3.1, magnesium 2.5. Current Medications: The patient on include: 1.TPN. 2.Metoprolol. 3.Insulin. 4.Lorazepam. 5.Thiamine. Assessment And Plan: 1.Acute kidney injury secondary to rhabdomyolysis, recovered, resolved. 2.Rhabdomyolysis, resolved, off IV fluid. 3.Hypertension, controlled optimal. Continue current medication. 4.Hypokalemia. Keep adjusting TPN. Apparently, family decided about hospice. We will sign off. Please call us if any change in the con dition. WILLIE/STEPHANE Voice ID: [id number] Report ID: [id number]
--- NOTE | 2019-10-05 15:40 | CON ---
Date of Consultation: 09/12/2019 Reason Consultation: Dysphagia, cachexia, protein calorie malnutrition. History Of Present Illness: Patient is an 83-year-old female with history of severe kyphosi s, osteoarthritis, previous fractures, anemia, hypertension, severe osteoporosis, gastroesophageal re flux disease, came to the hospital, found down, brought to the hospital, found to have a non-ST eleva tion myocardial infarction with acute rhabdomyolysis. CK elevated above 1400. Status post fall as w ell. Patient also has a history of reflux disease and severe osteoporosis and osteopenia. Patient f ound been unable to swallow effectively. Dobbhoff tube placement and NG tube placement attempted by RN, was unable place, asked to be seen by gastroenterology service for further recommendations. Past Medical History: Significant for severe kyphosis, severe osteoporosis, osteopenia, osteoarthrit is with fractures, anemia, hypertension, gastroesophageal reflux disease, vitamin D deficiency. Tita ent also found to have rhabdomyolysis on this admission, given IV fluids as well. Kidney function is normal, but troponin I was 4.32 with a CK level of 1400. Past Surgical History: Hysterectomy. Allergies: NKDA. Social History: Lives at home. Uses a walker for ambulation. Needs assistance for activities of da kd living. No tobacco, alcohol, or illicit drug use. Family History: Mother with bladder disease. Review of Systems: Patient has dysphagia, protein calorie malnutrition, mild weakness, malaise. Previously walked on a walker, now is bed-bound, is found to have poor overall prognosis, but there is no report of any aimee na, hematochezia, hematemesis, coffee-grounds emesis, hemoptysis, hematuria, dysuria polydipsia, ches t pain. There is some shortness of breath, but no seizure or syncope. Unclear if she has depression or anxiety. Unable to respond to my questioning. Physical Examination: Vital Signs: which is low with cachexia. She has a temperature of 97.9 degrees Fahrenhei t, pulse 92, respirations 20, blood pressure 133/82, O2 saturation 95%. General: She is a cachectic female, lying in bed. Some mild shortness of breath with labored breath ing. Minimal weakness and extensive. Unable to respond effectively to questioning. HEENT: Normocephalic, atraumatic. Anicteric. Temporal wasting. Thin face and neck. Thin body. Respirations: Labored with clear to auscultation. Cardiac: Regular rate and rhythm. No gallops or rubs. Abdomen: Positive bowel sounds. Soft, nontender, nondistended. No hepatosplenomegaly. Extremities: No clubbing, cyanosis, or edema. 2+ pulses. Neuro: Alert, oriented x1-2. So weak and tired, she cannot effectively respond to questioning. Abl e to move extremities. Data: Patient has a white count of 9.0, hemoglobin of 10.0, hematocrit 30, MCV of 95, platelet count of 104, polys of 94%, lymphocytes 1%, monocytes 4%. PT of 10.8, INR of 0.91, PTT of 27.9. Sodium 1 39, potassium 3.4, chloride 106, bicarb 22, BUN 34, creatinine of 0.46, glucose 144, calcium 8.5. Cr eatine kinase of 1092. On the , the patient had a sodium of 131. CK of 1455, troponin I of 4.55 , rapid troponin I of 4.32 and a repeat of 3.36. B-type natriuretic peptide elevated at 8285. Trigl ycerides 69, cholesterol 183, LDL of 72, HDL of 97. Trace ketones, 2+ blood, 2+ total protein, trace glucose, otherwise negative. Impression: 1.Dysphagia with severe cachexia, BMI anywhere from approximately 12 to 17, more likely 14 with weig ht loss recently. Unable to swallow, unable to place Dobbhoff tube and NG to for enteral feeding. S o, patient is a high risk for endoscopic procedure, having suffered a myocardial infarction on this a dmission and also having rhabdomyolysis and hyponatremia. 2.Status post non-ST elevation myocardial infarction. 3.Acute rhabdomyolysis, on IV fluids. 4.Hyponatremia, improving on IV fluids. 5.History of hypertension. 6.Gastroesophageal reflux disease. 7.Osteoporosis, osteopenia, severe, with prior fractures and severe kyphosis. Recommendations: 1.One check albumin and prealbumin. 2.Continue TPN. 3.Try to once again to place Dobbhoff tube if possible by RNs or other staff and start tube feeds as able. Consider PEG tube if patient and family agree. Patient on aspirin and Lovenox currently and high risk in the setting of acute TX, therefore we consider interventional radiology PEG tube placeme nt at tertiary center. 4.Speech Therapy consulted for modified barium swallow to assess swallowing again to see if patient may have the ability to swallow some p.o. nutrition. JOEY/MODL Voice ID: [id number] Report ID: [id number]
== END 2019-09-15 13:10 | disposition hospice, home (50) | DRG 280 ==
LOC: ER 09:55 → ERHOLD 12:37 → 3RD-ICU 20:21 → 4TH 09-13 16:45
PROVIDERS: ADMIT Family Medicine; ATTEND Hospitalist
DX: I21.4 Non-ST elevation (NSTEMI) myocardial infarction (principal); E43 Unspecified severe protein-calorie malnutrition; S32.019A Unspecified fracture of first lumbar vertebra, initial encounter for closed fracture; M62.82 Rhabdomyolysis; E87.1 Hypo-osmolality and hyponatremia; Z68.1 Body mass index [BMI] 19.9 or less, adult; R64 Cachexia; N17.9 Acute kidney failure, unspecified; I10 Essential (primary) hypertension; M40.209 Unspecified kyphosis, site unspecified; D64.9 Anemia, unspecified; K21.9 Gastro-esophageal reflux disease without esophagitis; M81.0 Age-related osteoporosis without current pathological fracture; E55.9 Vitamin D deficiency, unspecified; D69.6 Thrombocytopenia, unspecified; E87.6 Hypokalemia; R62.7 Adult failure to thrive; R13.10 Dysphagia, unspecified; R31.9 Hematuria, unspecified; Z66 Do not resuscitate; Y92.9 Unspecified place or not applicable; W19.XXXA Unspecified fall, initial encounter; Z91.81 History of falling; Z90.710 Acquired absence of both cervix and uterus
CPT/HCPCS: 36415; 70450; 71045; 71250; 72125; 76770; 76830; 80048; 80061; 80069; 81003; 81015; 82040; 82272; 82550; 82553; 82805; 82947; 83735; 83880; 84100; 84134; 84443; 84478; 84484; 85025; 85610; 85730; 93005; 93306; 94760; 96360; 96361; 99285; C9113; J0360; J1650; J3411; J7030; J7040